=== PATIENT | male | born 1975 | race Caucasian/White ===

== ENCOUNTER 2020-08-05 20:16 | Emergency (ER) | payer OTHER ==
[~2020-08-05] VITALS: Ht 172.7 cm; Wt 215.9 kg
[2020-08-05] MEDS ORDERED: LASI20TA3 PO (20:24)
[2020-08-05] MEDS ORDERED: ZETI10TA16 PO (20:24)
[2020-08-05] MEDS ORDERED: DULO1CAP6 PO (20:24)
[2020-08-05] MEDS ORDERED: PROT20TA11 PO (20:24)
[2020-08-05] MEDS ORDERED: tumeric PO (20:24)
[2020-08-05] MEDS ORDERED: CELE100C PO (20:24)
[2020-08-05] MEDS ORDERED: NS 1,000 ML IV ONE (21:30)
[2020-08-05] MEDS ORDERED: KETOROLAC 30 MG/ML 1ML VIAL IV ONE (21:30)
[2020-08-05 21:59] LABS: BASO # 0.1 10^3/uL (0.0-0.2); BASO % 0.9 % (0.0-1.0); EOS # 0.2 10^3/uL (0.0-0.5); EOS % 2.3 % (0.0-3.0); HEMATOCRIT 52.7 % (42.0-52.0); HEMOGLOBIN 17.5 g/dl (13.5-17.5); LYMPH # 2.4 10^3/uL (1.5-5.0); MEAN CORPUSCULAR HEMOGLOBIN 30.8 pg (27.0-33.0); MEAN CORPUSCULAR HGB CONC 33.2 g/dl (32.0-36.5); MEAN CORPUSCULAR VOLUME 92.8 fl (80.0-96.0); MONO # 0.8 10^3/uL (0.0-0.8); MONO % 12.3 % (0.0-5.0); NEUTROPHILS # 3.2 10^3/uL (1.5-8.5); NEUTROPHILS % 48.2 % (36.0-66.0); PLATELET COUNT, AUTOMATED 257 10^3/uL (150-450); RED BLOOD COUNT 5.68 10^6/uL (4.30-6.10); WHITE BLOOD COUNT 6.5 10^3/uL (4.0-10.0)
[2020-08-05 22:28] LABS: ALBUMIN 3.8 GM/DL (3.2-5.2); ALT/SGPT 35 U/L (12-78); BILIRUBIN,DIRECT 0.3 MG/DL (0.0-0.2); BILIRUBIN,TOTAL 1.4 MG/DL (0.2-1.0); BLOOD UREA NITROGEN 9 MG/DL (7-18); CALCIUM LEVEL 9.8 MG/DL (8.5-10.1); CARBON DIOXIDE LEVEL 32 MEQ/L (21-32); CHLORIDE LEVEL 104 MEQ/L (98-107); GLOMERULAR FILTRATION RATE > 60.0 (>60); GLUCOSE, FASTING 86 MG/DL (70-100); LIPASE 78 U/L (73-393); SODIUM LEVEL 138 MEQ/L (136-145); TOTAL PROTEIN 8.2 GM/DL (6.4-8.2)
--- NOTE | 2020-08-05 22:29 | REPVR ---
PROCEDURE INFORMATION: Exam: CT Abdomen And Pelvis Without Contrast Exam date and time: 08/05/2020 9:56 PM Age: 45 years old Clinical indication: Abdominal pain; Localized; Left; Additional info: Left sided flank pain, hematuria TECHNIQUE: Imaging protocol: Computed tomography of the abdomen and pelvis without contrast. Radiation optimization: All CT scans at this facility use at least one of these dose optimization techniques: automated exposure control; mA and/or kV adjustment per patient size (includes targeted exams where dose is matched to clinical indication); or iterative reconstruction. COMPARISON: No relevant prior studies available. FINDINGS: Limitations: Evaluation is somewhat limited by lack of IV contrast. Lungs: The visualized lung bases are essentially clear. Liver: Grossly unremarkable. Gallbladder and bile ducts: Multiple stones are present in the gallbladder. Pancreas: The pancreas is somewhat atrophic. Spleen: Grossly unremarkable. Adrenals: Grossly unremarkable. Kidneys and ureters: Mild left-sided hydroureteronephrosis with a 5 x 3 x 2 mm mid to distal left ureteral stone, approximately 8 cm proximal to the ureterovesical junction, and with a 3 x 3 x 2 mm stone at the left ureterovesical junction. There are additional nonobstructing bilateral renal stones, measuring up to 7 mm on the right and 4 mm on the left. There is no right-sided hydronephrosis or ureteral stone. Stomach and bowel: The unopacified small bowel is not significantly distended to suggest obstruction. The large bowel is grossly unremarkable in appearance. Appendix: The appendix appears normal. Intraperitoneal space: No free air or significant free fluid. Vasculature: The abdominal aorta is nonaneurysmal. Atherosclerotic vascular calcifications are noted. Lymph nodes: No gross pathologic lymphadenopathy. Bladder: Grossly unremarkable. Reproductive: Unremarkable as visualized. Bones/joints: Degenerative changes involve the spine and hips. Soft tissues: Unremarkable. IMPRESSION: 1. Mild left-sided hydroureteronephrosis with a 5 x 3 x 2 mm mid to distal left ureteral stone, approximately 8 cm proximal to the ureterovesical junction, and with a 3 x 3 x 2 mm stone at the left ureterovesical junction. 2. Additional nonobstructing bilateral nephrolithiasis. 3. Cholelithiasis. Electronically signed by: Torin Ibarra On 08/05/2020 22:29:02 PM
[2020-08-06] MEDS ORDERED: ONDANSETRON 4MG/2ML VIAL IV ONE (00:15)
[2020-08-06] MEDS ORDERED: MORPHINE 4 MG/ML 1ML VIAL/SYRINGE (J2270) IV PRN (00:15)
[2020-08-06] MEDS ORDERED: PERC5TAB12 PO (01:09)
[2020-08-06] MEDS ORDERED: BACT800T5 PO (01:09)
[2020-08-06] MEDS ORDERED: FLOM0.4C39 PO (01:09)
[2020-08-06] MEDS ORDERED: TAMSULOSIN 0.4 MG CAP PO ONE (01:15)
[2020-08-06] MEDS ORDERED: OXYCODONE/APAP 5MG/325MG(BULK FOR ED) 1 TABLET PO ONE (01:15)
[2020-08-06 01:27] VITALS: BP 129/60
== END 2020-08-06 01:39 | disposition home or self-care (01) ==
LOC: M ED 20:16
DX: N13.1 Hydronephrosis with ureteral stricture, not elsewhere classified (principal); N13.0 Hydronephrosis with ureteropelvic junction obstruction; N20.0 Calculus of kidney; K80.20 Calculus of gallbladder without cholecystitis without obstruction; I50.9 Heart failure, unspecified; K21.9 Gastro-esophageal reflux disease without esophagitis; Z88.1 Allergy status to other antibiotic agents; Z79.899 Other long term (current) drug therapy
CPT/HCPCS: 74176; 80048; 80076; 81001; 83690; 85025; 87040; 87086; 96361; 96374; 96375; 99284; J1885; J2270; J2405

== ENCOUNTER 2021-01-12 06:27 | Emergency (ER) | payer OTHER ==
[~2021-01-12] VITALS: Ht 175.3 cm; Wt 234.5 kg
[~2021-01-12 06:27] MED LIST: BACT800T5 PO; CELE100C PO; DULO1CAP6 PO; FLOM0.4C39 PO; LASI20TA3 PO; PERC5TAB12 PO; PROT20TA11 PO; ZETI10TA16 PO; tumeric PO
[2021-01-12] MEDS ORDERED: NS 1,000 ML IV ONE (07:00)
[2021-01-12] MEDS ORDERED: MORPHINE 4 MG/ML 1ML VIAL/SYRINGE (J2270) IV ONE ×2 (07:00→08:15)
--- OUTSIDE RECORDS SUMMARY | 2021-01-12 07:02 | CCD ---
Author Author [facility] Organization [facility] Address Unknown Phone Unavailable Care Team Providers Care Retail Commission Sales Associate Name Role Phone Lala COCHRAN MD Unavailable Unavailable Lala COCHRAN MD Unavailable Unavailable Lala COCHRAN MD Unavailable Unavailable Lala COCHRAN MD Unavailable Unavailable Lala COCHRAN MD Unavailable Unavailable Lala COCHRAN MD Unavailable Unavailable Lala COCHRAN MD Unavailable Unavailable Lala COCHRAN MD Unavailable Unavailable Lala COCHRAN MD Unavailable Unavailable Lala COCHRAN MD Unavailable Unavailable Lala COCHRAN MD Unavailable Unavailable Lala COCHRAN MD Unavailable Unavailable Lala COCHRAN MD Unavailable Unavailable Lala COCHRAN MD Unavailable Unavailable Lala CCOHRAN MD Unavailable Unavailable Lala COCHRAN MD Unavailable Unavailable Lala COCHRAN MD Unavailable Unavailable Lala COCHRAN MD Unavailable Unavailable Lala COCHRAN MD Unavailable Unavailable Lala COCHRAN MD Unavailable Unavailable Lala COCHRAN MD Unavailable Unavailable Lala COCHRAN MD Unavailable Unavailable Lala COCHRAN MD Unavailable Unavailable Lala COCHRAN MD Unavailable Unavailable Lala COCHRAN MD Unavailable Unavailable Lala COCHRAN MD Unavailable Unavailable Lala COCHRAN MD Unavailable Unavailable Lala COCHRAN MD Unavailable Unavailable Lala COCHRAN MD Unavailable Unavailable Lala COCHRAN MD Unavailable Unavailable Lala COCHRAN MD Unavailable Unavailable Lala COCHRAN MD Unavailable Unavailable Lala COCHRAN MD Unavailable Unavailable Lala COCHRAN MD Unavailable Unavailable Lala COCHRAN MD Unavailable Unavailable Lala COCHRAN MD Unavailable Unavailable Lala COCHRAN MD Unavailable Unavailable Lala COCHRAN MD Unavailable Unavailable Lala COCHRAN MD Unavailable Unavailable Lala COCHRAN MD Unavailable Unavailable Lala COCHRAN MD Unavailable Unavailable Lala COCHRAN MD Unavailable Unavailable Lala COCHRAN MD Unavailable Unavailable Lala COCHRAN MD Unavailable Unavailable Lala COCHRAN MD Unavailable Unavailable DR MD EH TITUS Unavailable Unavailable MARYJO, RAMIRO PA Unavailable Unavailable MARYJO, RAMIRO PA Unavailable Unavailable MARYJO, RAMIRO PA Unavailable Unavailable MARYJO, RAMIRO PA Unavailable Unavailable MARYJO, RAMIRO PA Unavailable Unavailable MARYJO, RAMIRO PA Unavailable Unavailable MARYJO, RAMIRO PA Unavailable Unavailable MARYJO, RAMIRO PA Unavailable Unavailable MARYJO, RAMIRO PA Unavailable Unavailable MARYJO, RAMIRO PA Unavailable Unavailable MARYJO, RAMIRO PA Unavailable Unavailable MARYJO, RAMIRO PA Unavailable Unavailable MARYJO, RAMIRO PA Unavailable Unavailable MARYJO, RAMIRO PA Unavailable Unavailable Ángel, E Yash DO Unavailable Unavailable Ángel, E Yash DO Unavailable Unavailable Ángel, E Yash DO Unavailable Unavailable Ángel, E Yash DO Unavailable Unavailable Ángel, E Yash DO Unavailable Unavailable Ángel, E Yash DO Unavailable Unavailable Ángel, E Yash DO Unavailable Unavailable Ángel, E Yash DO Unavailable Unavailable Ángel, E Yash DO Unavailable Unavailable Ángel, E Yash DO Unavailable Unavailable Ángel, E Yash DO Unavailable Unavailable Ángel, E Yash DO Unavailable Unavailable Ángel, E Yash DO Unavailable Unavailable Ángel, E Yash DO Unavailable Unavailable Ángel, E Yash DO Unavailable Unavailable Ángel, E Yash DO Unavailable Unavailable Ángel, E Yash DO Unavailable Unavailable Ángel, E Yash DO Unavailable Unavailable Ángel, E Yash DO Unavailable Unavailable Ángel, E Yash DO Unavailable Unavailable Ángel, E Yash DO Unavailable Unavailable Ángel, E Yash DO Unavailable Unavailable Ángel, E Yash DO Unavailable Unavailable Ágnel, E Yash DO Unavailable Unavailable DR DOMINIC HOLLEY [facility] Unavailable Unavailable Re-disclosure Warning The records that you are about to access may contain information from federally-assisted alcohol or drug abuse programs. If such information is present, then the following federally mandated warning applies: This information has been disclosed to you from records protected by federal confidentiality rules (42 CFR part 2). The federal rules prohibit you from making any further disclosure of this information unless further disclosure is expressly permitted by the written consent of the person to whom it pertains or as otherwise permitted by 42 CFR part 2. A general authorization for the release of medical or other information is NOT sufficient for this purpose. The Federal rules restrict any use of the information to criminally investigate or prosecute any alcohol or drug abuse patient.The records that you are about to access may contain highly sensitive health information, the redisclosure of which is protected by Article 27-F of the [facility] Public Health law. If you continue you may have access to information: Regarding HIV / AIDS; Provided by facilities licensed or operated by the [facility] Office of Mental Health; or Provided by the [facility] Office for People With Developmental Disabilities. If such information is present, then the following [facility] mandated warning applies: This information has been disclosed to you from confidential records which are protected by state law. State law prohibits you from making any further disclosure of this information without the specific written consent of the person to whom it pertains, or as otherwise permitted by law. Any unauthorized further disclosure in violation of state law may result in a fine or fdc sentence or both. A general authorization for the release of medical or other information is NOT sufficient authorization for further disc losure. Allergies and Adverse Reactions Type Description Substance Reaction Status Data Source(s ) Miscellaneous allergy No Known Environmental Allergies No Kn own Environmental Allergies [facility] Food allergy CINNAMON CINNAMON [facility] ROCEPHIN ROCEPHIN Anaphylaxis MODERATE C [facility] Drug allergy LIPITOR LIPITOR ELEVATED LIVER ENZYMES MODERATE [facility] Family History Family Member Name Family Member Gender Family Member Status Date o f Status Description Data Source(s) Unknown Unknown Problem [facility] ([facility] Encounters Encounter Providers Location Date Indications Data Source(s ) Outpatient Attender: Yash albright: Yash Neal DOConsultant: DR NESSA HOLLEY 008 09/21/2020 12:42:00 PM EDT - 09/21/2020 12:42:00 PM EDT Lab test [facility] Lab test Outpatient Attender: Yash albright: Yash Hernandezerrer: Yash Neal DOConsultant: DR NESSA HOLLEY 09/21/2020 11:37:00 AM EDT - 09/21/2020 12:00:00 PM EDT Pain in back [facility] Pain in back Patient discharged. Outpatient Attender: DR EH Rosalesmitter: DR EH MONCADASReferrer: DR EH MONCADASConsultant: DR NESSA HOLLEY 08/11/2020 02:20:00 PM EDT - 08/11/2020 02:30:00 PM EDT Other follow-up examination [facility] Other follow-up examination Patient discharged. Outpatient Attender: RAMIRO RINCON dmitter: RAMIRO SIBLEY PAReferrer: RAMIRO SIBLEY PAConsultant: BELGICA COCHRAN MD 03/05/2020 02:30:00 PM EDT - 03/05/2020 02:50:00 PM EDT Pain in back [facility] Pain in back Patient discharged. Outpatient Attender: Yash Leal mitter: Yash Hernandezerrer: Yash Neal DOConsultant: BELGICA COCHRAN MD 01/30/2020 01:30:0 0 PM EST - 01/30/2020 02:20:00 PM EST Pain in back [facility] Pain in back Patient discharged. Outpatient Attender: Yash Leal mitter: Yash Hernandezerrer: Yash Neal DOConsultant: BELGICA COCHRAN MD 12/04/2019 02:47:0 0 PM EST - 12/04/2019 03:00:00 PM EST Pain in back [facility] Pain in back Patient discharged. Outpatient Attender: BELGICA COCHRAN MDAdmi tter: BELGICA COCHRAN MDReferrer: BELGICA COCHRAN MDConsultant: BELGICA COCHRAN MD 11/27/1999 04:06:00 PM EST [facility] Medications Medication Brand Name Start Date Product Form Dose Route Admi nistrative Instructions Pharmacy Instructions Status Indications Reaction Description Data Source(s) Diclofenac Sodium 20 MG/ML Topical Solut ion [Pennsaid] Pennsaid 2% Topical application Solution Pennsaid 2% Topical application Solution 02/13/2020 12:00:00 AM EDT 1 g TOPICAL active Pennsaid 2% Topical application Solution 02/13/2020 Unknown TOPICAL NEEDED EVERY 12HR 1 APPLICATION [id number] [facility] duloxetine 30 MG Delayed Release Oral Ca psule DULoxetine HCl 30MG Oral Capsule, Delayed Release DULoxetine HCl 30MG Oral Capsule, Delayed Release 03/2020 12:00:00 AM EST 1 CAPSULE BY MOUTH active DULoxetine HCl 30MG Oral Capsule, Delayed Release 01/30/2020 Unknown BY MOUTH DAILY 1 CAPSULE 5969 30 [facility] duloxetine 30 MG Delayed Release Oral Ca psule DULoxetine HCl 30MG Oral Capsule, Delayed Release DULoxetine HCl 30MG Oral Capsule, Delayed Release 03/2020 12:00:00 AM EST 1 CAPSULE BY MOUTH active DULoxetine HCl 30MG Oral Capsule, Delayed Release 01/30/2020 Unknown BY MOUTH DAILY 1 CAPSULE 5969 30 [facility] Diclofenac Sodium 0.03 MG/MG Topical Gel Diclofenac Sodium 3% Topical application Gel/Jelly Diclofenac Sodium 3% Topical application Gel/Jelly 01/30/2020 12:00:00 AM EST 1 g TOPICAL active Diclofenac Sodium 3% Topical application Gel/Jelly 01/30/2020 Unknown TOPICAL NEEDED E VERY 12HR 1 APPLICATION [id number] [facility] Diclofenac Sodium 0.03 MG/MG Topical Gel Diclofenac Sodium 3% Topical application Gel/Jelly Diclofenac Sodium 3% Topical application Gel/Jelly 01/30/2020 12:00:00 AM EST 1 g TOPICAL active Diclofenac Sodium 3% Topical application Gel/Jelly 01/30/2020 Unknown TOPICAL NEEDED E VERY 12HR 1 APPLICATION [id number] [facility] Diclofenac Sodium 0.01 MG/MG Topical Gel [Voltaren] Voltaren Gel 1% Topical application Gel/Jelly Voltaren Gel 1% Topical application Gel/Jelly 12/04/19 12:00:00 AM EST 4 GRAM TOPICAL active Voltaren Gel 1% Topical application Gel/Jelly 12/04/2019 Unknown TOPICAL THREE TIMES A DAY 4 GRAM [id number] [facility] ezetimibe 10 MG Oral Tablet [Zetia] Zetia 10MG Oral Ta blet Zetia 10MG Oral Tablet 12/04/2019 12:00:00 AM EST 1 TABLET BY MOUTH active Zetia 10MG Oral Tablet 12/04/2019 Unknown BY MOUTH DAILY 1 TABLET [id number] [facility] Nitroglycerin 0.4 MG Sublingual Tablet [ Nitrostat] Nitrostat 0.4MG Sublingual Tablet Nitrostat 0.4MG Sublingual Tablet 12/04/2019 12:00:00 AM EST 0.4 MILLIGRAMS SUBLINGUAL active Nitrostat 0.4MG [place] blingual Tablet 12/04/2019 Unknown SUBLINGUAL 1 SL EVERY 5 MIN X3 PRN 0.4 MILLIGRAMS [id number] [facility] Medrol Dosepak 4MG Oral Tablet 12/04/2019 12:00:00 AM EST 1 TABLET BY MOUTH active Medrol Dosepak 4MG Oral Tablet 0 Unknown BY MOUTH DIRECTED 1 TABLET [id number] [facility] Nitroglycerin 0.4 MG Sublingual Tablet [ Nitrostat] Nitrostat 0.4MG Sublingual Tablet Nitrostat 0.4MG Sublingual Tablet 12/04/2019 12:00:00 AM EST 0.4 MILLIGRAMS SUBLINGUAL active Nitrostat 0.4MG [place] blingual Tablet 12/04/2019 Unknown SUBLINGUAL 1 SL EVERY 5 MIN X3 PRN 0.4 MILLIGRAMS 368323 [facility] pantoprazole 20 MG Delayed Release Oral Tablet [Protonix] Protonix 20MG Oral Tablet, Enteric Coated Protonix 20MG Oral Tablet, Enteric Coated 12/04/2019 12:00:00 AM EST 1 TABLET BY MOUTH active Protonix 20MG Oral Tablet, Enteric Coated 12/04/2019 Unknown BY MOUTH DAILY 1 TABLET [id number] [facility] 24 HR metoprolol succinate 25 MG Extende d Release Oral Tablet Metoprolol Succinate 25MG Oral Tablet, Extended Release Metoprolol Succinate 25MG Oral Tablet, Extended Release 12/04/2019 12:00:00 AM EST 25 MILLIGRAMS ORAL active Metoprolol Succinate 25MG Oral Tablet, Ex tended Release 12/04/2019 Unknown ORAL TWICE A DAY 25 MILLIGRAMS [id number] [facility] Medrol Dosepak 4MG Oral Tablet 12/04/2019 12:00:00 AM EST 1 TABLET BY MOUTH active Medrol Dosepak 4MG Oral Tablet 0 Unknown BY MOUTH DIRECTED 1 TABLET [id number] [facility] celecoxib 100 MG Oral Capsule [Celebrex] CeleBREX 100M G Oral Capsule CeleBREX 100MG Oral Capsule 12/04/2019 12:00:00 AM EST 1 CAPSULE BY MOUTH active CeleBREX 100MG Oral Capsule 12/04/2019 Unknown BY MOUTH NEEDE D EVERY 12HR 1 CAPSULE 187695 [facility] Nitroglycerin 0.4 MG Sublingual Tablet [ Nitrostat] Nitrostat 0.4MG Sublingual Tablet Nitrostat 0.4MG Sublingual Tablet 12/04/2019 12:00:00 AM EST 0.4 MILLIGRAMS SUBLINGUAL active Nitrostat 0.4MG [place] blingual Tablet 12/04/2019 Unknown SUBLINGUAL 1 SL EVERY 5 MIN X3 PRN 0.4 MILLIGRAMS [id number] [facility] Diclofenac Sodium 0.01 MG/MG Topical Gel [Voltaren] Voltaren Gel 1% Topical application Gel/Jelly Voltaren Gel 1% Topical application Gel/Jelly 12/04/19 20 12:00:00 AM EST 4 GRAM TOPICAL active Voltaren Gel 1% Topical application Gel/Jelly 12/04/2019 Unknown TOPICAL THREE TIMES A DAY 4 GRAM [id number] [facility] Diclofenac Sodium 0.01 MG/MG Topical Gel [Voltaren] Voltaren Gel 1% Topical application Gel/Jelly Voltaren Gel 1% Topical application Gel/Jelly 12/04/19 12:00:00 AM EST 4 GRAM TOPICAL active Voltaren Gel 1% Topical application Gel/Jelly 12/04/2019 Unknown TOPICAL THREE TIMES A DAY 4 GRAM 204779 [facility] pantoprazole 20 MG Delayed Release Oral Tablet [Protonix] Protonix 20MG Oral Tablet, Enteric Coated Protonix 20MG Oral Tablet, Enteric Coated 12/04/2019 12:00:00 AM EST 1 TABLET BY MOUTH active Protonix 20MG Oral Tablet, Enteric Coated 12/04/2019 Unknown BY MOUTH DAILY 1 TABLET [id number] [facility] Furosemide 20 MG Oral Tablet [Lasix] Lasix 20MG Oral T ablet Lasix 20MG Oral Tablet 12/04/2019 12:00:00 AM EST 1 TABLET BY MOUTH active Lasix 20MG Oral Tablet 12/04/2019 Unknown BY MOUTH TWICE A DAY 1 TABLET [facility] ezetimibe 10 MG Oral Tablet [Zetia] Zetia 10MG Oral Ta blet Zetia 10MG Oral Tablet 12/04/2019 12:00:00 AM EST 1 TABLET BY MOUTH active Zetia 10MG Oral Tablet 12/04/2019 Unknown BY MOUTH DAILY 1 TABLET 279266 [facility] 24 HR metoprolol succinate 25 MG Extende d Release Oral Tablet Metoprolol Succinate 25MG Oral Tablet, Extended Release Metoprolol Succinate 25MG Oral Tablet, Extended Release 12/04/2019 12:00:00 AM EST 25 MILLIGRAMS ORAL active Metoprolol Succinate 25MG Oral Tablet, Ex tended Release 12/04/2019 Unknown ORAL TWICE A DAY 25 MILLIGRAMS [id number] [facility] celecoxib 100 MG Oral Capsule [Celebrex] CeleBREX 100M G Oral Capsule CeleBREX 100MG Oral Capsule 12/04/2019 12:00:00 AM EST 1 CAPSULE BY MOUTH active CeleBREX 100MG Oral Capsule 12/04/2019 Unknown BY MOUTH NEEDE D EVERY 12HR 1 CAPSULE [id number] [facility] Furosemide 20 MG Oral Tablet [Lasix] Lasix 20MG Oral T ablet Lasix 20MG Oral Tablet 12/04/2019 12:00:00 AM EST 1 TABLET BY MOUTH active Lasix 20MG Oral Tablet 12/04/2019 Unknown BY MOUTH TWICE A DAY 1 TABLET [facility] pantoprazole 20 MG Delayed Release Oral Tablet [Protonix] Protonix 20MG Oral Tablet, Enteric Coated Protonix 20MG Oral Tablet, Enteric Coated 12/04/2019 12:00:00 AM EST 1 TABLET BY MOUTH active Protonix 20MG Oral Tablet, Enteric Coated 12/04/2019 Unknown BY MOUTH DAILY 1 TABLET [id number] [facility] ezetimibe 10 MG Oral Tablet [Zetia] Zetia 10MG Oral Ta blet Zetia 10MG Oral Tablet 12/04/2019 12:00:00 AM EST 1 TABLET BY MOUTH active Zetia 10MG Oral Tablet 12/04/2019 Unknown BY MOUTH DAILY 1 TABLET 416505 [facility] 24 HR metoprolol succinate 25 MG Extende d Release Oral Tablet Metoprolol Succinate 25MG Oral Tablet, Extended Release Metoprolol Succinate 25MG Oral Tablet, Extended Release 12/04/2019 12:00:00 AM EST 25 MILLIGRAMS ORAL active Metoprolol Succinate 25MG Oral Tablet, Ex tended Release 12/04/2019 Unknown ORAL TWICE A DAY 25 MILLIGRAMS [id number] [facility] MG Oral Capsule [Celebrex] CeleBREX 100M G Oral Capsule CeleBREX 100MG Oral Capsule 12/04/2019 12:00:00 AM EST 1 CAPSULE BY MOUTH active CeleBREX 100MG Oral Capsule 12/04/2019 Unknown BY MOUTH NEEDE D EVERY 12HR 1 CAPSULE 511176 [facility] 20 MG Oral Tablet [Lasix] Lasix 20MG Oral T ablet Lasix 20MG Oral Tablet 12/04/2019 12:00:00 AM EST 1 TABLET BY MOUTH active Lasix 20MG Oral Tablet 12/04/2019 Unknown BY MOUTH TWICE A DAY [facility] 4MG Oral Tablet 12/04/2019 12:00:00 AM EST 1 TABLET BY MOUTH active Medrol Dosepak 4MG Oral Tablet 0 Unknown BY MOUTH DIRECTED 1 TABLET [id number] [facility] Insurance Providers Payer name Policy type / Coverage type Policy ID Covered republican ID Covered republican's relationship to starr Policy Starr Plan Information [employer]Z [id number] [employer] MANAGED CARE - CLINIC [id number] undefined [id number] [employer] MANAGED CARE - OP [id number] efined [id number] [place] [id number] S [id number] [employer]Z-PHYSICIAN [id number] undefined DF [id number] [employer]Z [id number] undefined [id number] [employer] I [id number] Self [id number] [employer] MEDICIAD MANAGED CARE-RECURRING [id number] MEDICAID [facility]-OP [id number] [place] - Medicaid [employer] Maintenance [employer] (HMO) Self [employer] MEDICAID [id number] Kerri [id number] MEDICAID [id number] S [id number] [facility] [id number] Problems, Conditions, and Diagnoses Code Display Name Description Problem Type Effective Dates Data Source(s) E6601 Morbid (severe) obesity due to excess ca lories Morbid (severe) obesity due to excess calories Diagnosis 09/21/2020 12:42:00 PM EDT [facility] E785 Hyperlipidemia, unspecified Hyperlipidemia, unspecifie d Diagnosis 09/21/2020 12:42:00 PM EDT [facility] E119 Type 2 diabetes mellitus without complic ations Type 2 diabetes mellitus without complications Diagnosis 09/21/2020 12:42:00 PM EDT [facility] M545 Low back pain Low back pain Diagnosis 09/21/2020 11:37:00 AM EDT [facility] F4312 Post-traumatic stress disorder, chronic Post-traumatic stress disorder, chronic Diagnosis 09/21/2020 11:37:00 AM EDT [facility] F341 Dysthymic disorder Dysthymic disorder Diagnosis 0 11:37:00 AM EDT [facility] R609 Edema, unspecified Edema, unspecified Diagnosis 0 11:37:00 AM T [facility] Z6845 Body mass index [BMI] 70 or greater, abigail lt Body mass index [BMI] 70 or greater, adult Diagnosis 09/21/2020 11:37:00 AM T [facility] N200 Calculus of kidney Calculus of kidney Diagnosis 0 11:37:00 AM EDT [facility] R1030 Lower abdominal pain, unspecified Lower abdomina l pain, unspecified Diagnosis 09/21/2020 11:37:00 AM EDT [facility] N132 N132 Diagnosis 08/11/2020 02:20:00 PM ED T [facility] R1032 Left lower quadrant pain Left lower quadrant pain Diag nosis 08/11/2020 02:20:00 PM EDT [facility] N132 Hydronephrosis with renal and ureteral c alculous obstruction Hydronephrosis with renal and ureteral calculous obstruction Diagnosis 020 02:20:00 PM EDT [facility] Z6844 Body mass index (BMI) 60.0-69.9, adult B mohit mass index (BMI) 60.0-69.9, adult Diagnosis 03/05/2020 02:30:00 PM EDT [facility] [id number] Pain in left knee Pain in left knee Diagnosis 03/05/2020 02:30:00 PM EDT [facility] M4646 Discitis, unspecified, lumbar region Discitis, u nspecified, lumbar region Diagnosis 01/30/2020 01:30:00 PM EST [facility] M1990 Unspecified osteoarthritis, unspecified site Unspecified osteoarthritis, unspecified site Diagnosis 12/04/2019 02:47:00 PM EST [facility] E804 Gilbert syndrome Gilbert syndrome Diagnosis 12/04/2019 02 :47:00 PM EST [facility] I10 Essential (primary) hypertension Essential (primary) h ypertension Diagnosis 12/04/2019 02:47:00 PM EST [facility] I252 Old myocardial infarction Old myocardial infarction Di agnosis 12/04/2019 02:47:00 PM EST [facility] I2510 Atherosclerotic heart diseas e of [place] coronary artery without angina pectoris Atherosclerotic heart disease of [place] coronary artery without angina pectoris Diagnosis 12/04/2019 02:47:00 PM [facility] Results ID Date Data Source [id number] 09/21/2020 12:50:00 PM EDT [facility] Name Value Range Interpretation Code Description Data Purvi rce(s) Supporting Document(s) Hemoglobin A1c/Hemoglobin.total in Blood 5.8 % 4.0 - 5.6 Above high normal [facility] Glucose mean value [Mass/volume] in Blood Estimated fr om glycated hemoglobin 120 mg/dL [facility] \BLDo\HEMOGLO BIN A1C\BLDx\ 4.0 - 5.6%: Normal 5.7 - 6.4%: Suggests Impaired Glucose Metabolism > or = 6.5%: Abnormal Estimated average glucose calculated using ADAG Study formula as recommended by the [place] [employer]. ID Date Data Source [id number] 09/21/2020 12:50:00 PM EDT [facility] Name Value Range Interpretation Code Description Data Purvi rce(s) Supporting Document(s) Cholesterol [Mass/volume] in Serum or Plasma 237 mg/dL [facility] Triglyceride [Mass/volume] in Serum or Plasma 100 mg/dL [facility] Cholesterol in HDL [Mass/volume] in Serum or Plasma 45 mg/dL [facility] Cholesterol in LDL [Mass/volume] in Serum or Plasma by calculati on 172 mg/dL [facility] CHOL/HDL 5.27 [facility] l \BLDo\INTERPRE TATION\BLDx\ REFERENCE RANGES (NATIONAL CHOLESTEROL EDUCATION PROGRAM) CHOLESTEROL < 200 mg/dL DESIREABLE 200 - 239 mg/dL BORDERLINE HIGH > 240 mg/dL HIGH TRIGLYCERIDES < 150 mg/dL DESIREABLE 150 - 199 mg/dL BORDERLINE HIGH 200 - 499 mg/dL HIGH > or = 500 mg/dL VERY HIGH HDL > or = 60 mg/dL HIGH < 40 mg/dL LOW LDL < 100 mg/dL DESIREABLE 100 - 129 mg/dL LOW RISK 130 - 159 mg/dL BORDERLINE HIGH 160 - 189 mg/dL HIGH > or = 190 mg/dL VERY HIGH ID Date Data Source [id number] 09/21/2020 12:50:00 PM EDT [facility] Name Value Range Interpretation Code Description Data Purvi rce(s) Supporting Document(s) BASIC METABOLIC PANEL [facility] BASIC METABOLIC PANEL Sodium [Moles/volume] in Serum or Plasma 138 mEq/L 136 - 145 [facility] Potassium [Moles/volume] in Serum or Plasma 4.0 mEq/L 3.5 - 5.1 [facility] Chloride [Moles/volume] in Serum or Plasma 102 mEq/L 98 - 107 [facility] Carbon dioxide, total [Moles/volume] in Serum or Plasma 27.1 mEq /L 21.0 - 32.0 [facility] Glucose [Mass/volume] in Serum or Plasma 97 mg/dL 70 - 100 [facility] Urea nitrogen [Mass/volume] in Serum or Plasma 12 mg/dL 7 - 18 [facility] CREATININE SERUM 0.98 mg/dL 0.70 - 1.30 [facility] AGE 45 yrs [facility] eGFR NON-AFR AMR >60 [facility] eGFR AFR AMR >60 [facility] ital BUN/CREAT 12 6 - 25 [facility] Calcium [Mass/volume] in Serum or Plasma 9.5 mg/dL 8.8 - 10.2 [facility] ANION GAP 9 7 - 15 [facility] l Estimated GFR reference r yasir: > 60 mL/min/1.73m >18 years: Calculated using IDMS traceable MDRD Study Equation <18 years: Calculated using IDMS traceable Bedside Paul Equation Procedure Vital Signs ID Date Data Source UNK Name Value Range Interpretation Code Description Data Source(s) Body weight 215.46 kg 215.46 kg [facility] Body temperature 36.6 Celia 36.6 Celia [facility] Respiratory rate 20 /min 20 /min [facility] Heart rate 97.0 /min 97.0 /min [facility] ospital Oxygen saturation in Arterial blood by Pulse oximetry 97 % 97 % [facility] Body height 175.2600 cm 175.2600 cm [facility] Body surface area Derived from formula 3.24 m2 3.24 m2 [facility] Diastolic blood pressure 84 mm[Hg] 84 mm[Hg] [facility] Systolic blood pressure 139 mm[Hg] 139 mm[Hg] [facility] Body mass index (BMI) [Ratio] 70.14 kg/m2 70.14 kg/m2 [facility] Body weight 212.73 kg 212.73 kg [facility] Body temperature 37.3 Celia 37.3 Celia [facility] Respiratory rate 20 /min 20 /min [facility] Heart rate 106.0 /min 106.0 /min [facility] ospital Oxygen saturation in Arterial blood by Pulse oximetry 96 % 96 % [facility] Body height 175.2600 cm 175.2600 cm [facility] Body surface area Derived from formula 3.22 m2 3.22 m2 [facility] Diastolic blood pressure 94 mm[Hg] 94 mm[Hg] [facility] Systolic blood pressure 154 mm[Hg] 154 mm[Hg] C [facility] Body mass index (BMI) [Ratio] 69.26 kg/m2 69.26 kg/m2 [facility] Patient Treatment Plan of Care Planned Activity Planned Date Details Description Data Source (s) Diclofenac Sodium 20 MG/ML Topical Solution [Pennsaid] 02/13/2020 12:00:00 AM EDT [facility] Diclofenac Sodium 0.03 MG/MG Topical Gel 01/30/2020 12:00:00 AM [facility] duloxetine 30 MG Delayed Release Oral Capsule 01/30/2020 12:00:00 A M [facility] Diclofenac Sodium 0.03 MG/MG Topical Gel 01/30/2020 12:00:00 AM [facility] duloxetine 30 MG Delayed Release Oral Capsule 01/30/2020 12:00:00 A M [facility] Nitroglycerin 0.4 MG Sublingual Tablet [Nitrostat] 12/04/2019 12 :00:00 AM [facility] Medrol Dosepak 4MG Oral Tablet 12/04/2019 12:00:00 AM [facility] Furosemide 20 MG Oral Tablet [Lasix] 12/04/2019 12:00:00 AM [facility] ezetimibe 10 MG Oral Tablet [Zetia] 12/04/2019 12:00:00 AM [facility] Diclofenac Sodium 0.01 MG/MG Topical Gel [Voltaren] 12/04/19 12:00:00 AM [facility] pantoprazole 20 MG Delayed Release Oral Tablet [Proton ix] 12/04/2019 12:00:[address] [facility] 24 HR metoprolol succinate 25 MG Extended Release Oral Tablet 12/04/2019 12:00:[address] [facility] celecoxib 100 MG Oral Capsule [Celebrex] 12/04/2019 12:00:00 AM [facility] 24 HR metoprolol succinate 25 MG Extended Release Oral Tablet 12/04/2019 12:00:[address] [facility] celecoxib 100 MG Oral Capsule [Celebrex] 12/04/2019 12:00:00 AM [facility] Nitroglycerin 0.4 MG Sublingual Tablet [Nitrostat] 12/04/2019 12 :00:00 AM [facility] Medrol Dosepak 4MG Oral Tablet 12/04/2019 12:00:00 AM [facility] Furosemide 20 MG Oral Tablet [Lasix] 12/04/2019 12:00:00 AM [facility] ezetimibe 10 MG Oral Tablet [Zetia] 12/04/2019 12:00:00 AM [facility] Diclofenac Sodium 0.01 MG/MG Topical Gel [Voltaren] 12/04/19 12:00:00 AM [facility] pantoprazole 20 MG Delayed Release Oral Tablet [Proton ix] 12/04/2019 12:00:[address] [facility] celecoxib 100 MG Oral Capsule [Celebrex] 12/04/2019 12:00:00 AM [facility] 24 HR metoprolol succinate 25 MG Extended Release Oral Tablet 12/04/2019 12:00:[address] [facility] pantoprazole 20 MG Delayed Release Oral Tablet [Proton ix] 12/04/2019 12:00:[address] [facility] Medrol Dosepak 4MG Oral Tablet 12/04/2019 12:00:00 AM [facility] Furosemide 20 MG Oral Tablet [Lasix] 12/04/2019 12:00:00 AM [facility] Nitroglycerin 0.4 MG Sublingual Tablet [Nitrostat] 12/04/2019 12 :00:00 AM [facility] ezetimibe 10 MG Oral Tablet [Zetia] 12/04/2019 12:00:00 AM [facility] Diclofenac Sodium 0.01 MG/MG Topical Gel [Voltaren] 12/04/19 12:00:00 AM [facility]
[2021-01-12] MEDS ORDERED: PANTOPRAZOLE 40MG VIAL (C9113 PER 1) IV ONE (07:15)
[2021-01-12 07:27] LABS: INR 0.94; PROTHROMBIN TIME 12.8 SECONDS (12.5-14.3)
[2021-01-12 07:28] LABS: PARTIAL THROMBOPLASTIN TIME 31.5 SECONDS (24.2-38.5)
[2021-01-12 07:38] LABS: ALBUMIN 3.1 GM/DL (3.2-5.2); ALT/SGPT 32 U/L (12-78); AMYLASE 35 U/L (25-115); BILIRUBIN,DIRECT 0.3 MG/DL (0.0-0.2); BILIRUBIN,TOTAL 1.2 MG/DL (0.2-1.0); BLOOD UREA NITROGEN 15 MG/DL (7-18); CALCIUM LEVEL 8.9 MG/DL (8.5-10.1); CARBON DIOXIDE LEVEL 33 MEQ/L (21-32); CHLORIDE LEVEL 103 MEQ/L (98-107); CK-MB VALUE MASS < 1.0 NG/ML (<3.6); CPK CREATINE PHOSPHOKINASE 72 U/L (39-308); CREATININE FOR GFR 1.04 MG/DL (0.70-1.30); GLOMERULAR FILTRATION RATE > 60.0 (>60); GLUCOSE, FASTING 162 MG/DL (70-100); LIPASE 111 U/L (73-393); MB/CK RELATIVE INDEX 1.39 (< OR =4); NT-PRO BNP 40 PG/ML (<125); POTASSIUM SERUM 4.5 MEQ/L (3.5-5.1); SODIUM LEVEL 141 MEQ/L (136-145); TOTAL PROTEIN 7.4 GM/DL (6.4-8.2); TROPONIN I < 0.02 NG/ML (< 0.10)
[2021-01-12 07:49] LABS: BASO # 0.1 10^3/uL (0.0-0.2); BASO % 0.7 % (0.0-1.0); EOS # 0.1 10^3/uL (0.0-0.5); EOS % 1.1 % (0.0-3.0); HEMATOCRIT 51.7 % (42.0-52.0); HEMOGLOBIN 16.2 g/dl (13.5-17.5); LYMPH # 0.9 10^3/uL (1.5-5.0); LYMPH % 12.5 % (24.0-44.0); MEAN CORPUSCULAR HEMOGLOBIN 28.8 pg (27.0-33.0); MEAN CORPUSCULAR HGB CONC 31.3 g/dl (32.0-36.5); MONO # 0.7 10^3/uL (0.0-0.8); MONO % 9.4 % (2.0-8.0); NEUTROPHILS # 5.4 10^3/uL (1.5-8.5); NEUTROPHILS % 75.9 % (36.0-66.0); PLATELET COUNT, AUTOMATED 232 10^3/uL (150-450); RED BLOOD COUNT 5.62 10^6/uL (4.30-6.10); WHITE BLOOD COUNT 7.1 10^3/uL (4.0-10.0)
[2021-01-12] MEDS ORDERED: ISOVUE-370 76% 100ML VIAL As Ordered ONE (07:51)
--- NOTE | 2021-01-12 07:55 | REP ---
INDICATION: Abdominal Pain. COMPARISON: Comparison study 08/05/2020.. TECHNIQUE: Six views are obtained including upright chest and abdomen views and supine abdomen views. FINDINGS: Upright chest radiograph is unremarkable. There is no evidence of infiltrate or free subdiaphragmatic air. Heart size is normal. Pulmonary vasculature is not increased. Pleural angles are sharp. Supine and erect views of the abdomen demonstrate a normal bowel gas pattern. The psoas margins and the flank stripes are intact. There is no evidence of mass, organomegaly, or pathologic calcification. IMPRESSION: Negative acute abdominal series. <Electronically signed by Víctor Montoya > 01/12/21 0750
--- NOTE | 2021-01-12 07:58 | ECGEPIP ---
[facility] - ED Test Date: 2021-01-12 Pat Name: ANNABELLE MCMAHON Department: Room: - Gender: Male [employer]: : 1975 Requested By: MARSHA Hackett PA-C Order Number: [id number] Reading MD: Kanu Foreman Measurements Intervals [place] Rate: 103 P: 33 FL: 154 QRS: 71 QRSD: 90 T: 38 QT: 344 QTc: 450 Interpretive Statements Sinus tachycardia NO PRIORS FOR COMPARISON Electronically Signed on 01-12-2021 7:58:22 EST by Kanu Foreman
[2021-01-12 08:15] LABS: MAGNESIUM LEVEL 2.2 MG/DL (1.8-2.4)
--- NOTE | 2021-01-12 08:32 | REP ---
INDICATION: epigastric abd pain COMPARISON: None. TECHNIQUE: Axial contrast enhanced images from the thoracic inlet to the upper abdomen using pulmonary embolus technique with multiplanar re-formations. 100 ml Isovue 370 intravenous contrast material administered without complication. Examination was followed by CT of the abdomen and pelvis. This CT examination was performed using the following dose reduction techniques: Automated exposure control, adjustment of mA and/or kv according to the patient's size, and use of iterative reconstruction technique. FINDINGS: Satisfactory enhancement of the pulmonary vasculature is achieved and no filling defects are identified to suggest pulmonary embolus. Further evaluation of the mediastinum demonstrates normal thoracic aorta, heart and pericardium. The bilateral lung ordonez are well aerated and clear without consolidation pleural effusion or pneumothorax. Tracheobronchial tree is patent. No nodule or mass lesion is identified. No adenopathy noted. Surrounding musculoskeletal structures intact IMPRESSION: No evidence for pulmonary embolus. Normal thoracic aorta without aneurysm or dissection. No acute mediastinal or pleural parenchymal process. <Electronically signed by Jorge Amin > 01/12/21 0874
--- NOTE | 2021-01-12 08:37 | REP ---
INDICATION: epigastric abd pain. COMPARISON: None TECHNIQUE: Axial contrast-enhanced images from the lung bases to the pubic symphysis using 100 cc Isovue 370 intravenous contrast material. . This CT examination was performed using the following dose reduction techniques: Automated exposure control, adjustment of mA and/or kv according to the patient's size, and the use of iterative reconstruction technique. FINDINGS: Liver, spleen and, bilateral adrenal glands are normal. Cholelithiasis noted without evidence for acute cholecystitis. Kidneys demonstrate nonobstructing intrarenal calculi measuring up to 5 mm in the right kidney and 3 mm in the left kidney. There is subtle bulbous appearance to the pancreatic tail which may be normal however subtle lesion cannot be excluded. The enteric system including stomach, small, and large bowel appears normal. No evidence for obstruction or acute inflammatory process. Normal terminal ileum and appendix are identified in the right lower quadrant. Pelvis demonstrates normal bladder and age-appropriate prostate/seminal vesicles. No ascites. No free air. No intraperitoneal or retroperitoneal adenopathy. Abdominal aorta and vasculature appear normal. Musculoskeletal structures are intact and without acute osseous abnormality. IMPRESSION: No acute abdominopelvic pathology appreciated. Bilateral nephrolithiasis. Cholelithiasis. Stable appearance of the pancreatic tail. Consider nonacute outpatient MRI with contrast to exclude possible lesion. <Electronically signed by Jorge Amin > 01/12/21 [id number]
--- NOTE | 2021-01-12 08:39 | REP ---
INDICATION: RUQ/epigastric pain, h/o gallstones COMPARISON: None. TECHNIQUE: Real time charles scale ultrasound examination using curved array transducer. FINDINGS: Visualized portions of the liver and pancreas are normal in appearance although limited by interposed bowel gas. The gallbladder demonstrates multiple gallstones without significant wall thickening, pericholecystic fluid, or obvious biliary ductal dilatation. Right kidney measures 11.4 x 5.6 x 6.0 cm and includes 13 mm upper pole and 8 mm lower pole nonobstructing nephroliths. No ascites in the visualized right upper quadrant. IMPRESSION: 1. Cholelithiasis without sonographic evidence for acute cholecystitis. 2. Nephrolithiasis without hydronephrosis. <Electronically signed by Jorge Amin > 01/12/21 [id number]
--- OUTSIDE RECORDS SUMMARY | 2021-01-12 09:15 | CCD ---
Author Author [facility] Organization [facility] Address Unknown Phone Unavailable Care Team Providers Care Process Engineer Name Role Phone Lala COCHRAN MD Unavailable Unavailable Lala COCHRAN MD Unavailable Unavailable Lala COCHRAN MD Unavailable Unavailable Lala COHCRAN MD Unavailable Unavailable Lala COCHRAN MD Unavailable [...] Unavailable Lala COCHRAN MD Unavailable Unavailable Lala COCRHAN MD Unavailable Unavailable Lala COCHRAN MD Unavailable [...] Unavailable Ángel, E Yash DO Unavailable Unavailable DR DOMINIC HOLLEY [facility] Unavailable Unavailable Re-disclosure Warning The records that [...] is protected by Article 27-F of the [facility] Public Health law. If you continue you may have access to information: Regarding HIV / AIDS; Provided by facilities licensed or operated by the [facility] Office of Mental Health; or Provided by the [facility] Office for People With Developmental Disabilities. If such information is present, then the following [facility] mandated warning applies: This information has been [...] law may result in a fine or usp sentence or both. A general authorization for the release of medical or other information is NOT sufficient authorization for further disc losure. Allergies and Adverse Reactions Type Description Substance Reaction Status Data Source(s ) Miscellaneous allergy No Known Environmental Allergies No Kn own Environmental Allergies [facility] Food allergy CINNAMON CINNAMON [facility] ROCEPHIN ROCEPHIN Anaphylaxis MODERATE C [facility] Drug allergy LIPITOR LIPITOR ELEVATED LIVER ENZYMES MODERATE [facility] Family History Family Member Name Family Member Gender Family Member Status Date o f Status Description Data Source(s) Unknown Unknown Problem [facility] ([facility] Encounters Encounter Providers Location Date Indications Data Source(s ) Outpatient Attender: Yash albright: Yash Neal DOConsultant: DR NESSA HOLLEY 008 09/21/2020 12:42:00 PM EDT - 09/21/2020 12:42:00 PM EDT Lab test [facility] Lab test Outpatient Attender: Yash albright: Yash Hernandezerrer: Yash Neal DOConsultant: DR NESSA HOLLEY 09/21/2020 11:37:00 AM EDT - 09/21/2020 12:00:00 PM EDT Pain in back [facility] Pain in back Patient discharged. Outpatient Attender: DR EH Rosalesmitter: DR EH MONCADASReferrer: DR EH MONCADASConsultant: DR NESSA HOLLEY 08/11/2020 02:20:00 PM EDT - 08/11/2020 02:30:00 PM EDT Other follow-up examination [facility] Other follow-up examination Patient discharged. Outpatient Attender: RAMIRO RINCON dmitter: RAMIRO SIBLEY PAReferrer: RAMIRO SIBLEY PAConsultant: BELGICA COCHRAN MD 03/05/2020 02:30:00 PM EDT - 03/05/2020 02:50:00 PM EDT Pain in back [facility] Pain in back Patient discharged. Outpatient Attender: Yash Leal mitter: Yash Hernandezerrer: Yash Neal DOConsultant: BELGICA COCHRAN MD 01/30/2020 01:30:0 0 PM EST - 01/30/2020 02:20:00 PM EST Pain in back [facility] Pain in back Patient discharged. Outpatient Attender: Yash Leal mitter: Yash Hernandezerrer: Yash Neal DOConsultant: BELGICA COCHRAN MD 12/04/2019 02:47:0 0 PM EST - 12/04/2019 03:00:00 PM EST Pain in back [facility] Pain in back Patient discharged. Outpatient Attender: BELGICA COCHRAN MDAdmi tter: BELGICA COCHRAN MDReferrer: BELGCIA COCHRAN MDConsultant: BELGICA COCHRAN MD 11/27/1999 04:06:00 PM EST [facility] Medications Medication Brand Name Start Date Product Form Dose Route Admi nistrative Instructions Pharmacy Instructions Status Indications Reaction Description Data Source(s) Diclofenac Sodium 20 MG/ML Topical Solut ion [Pennsaid] Pennsaid 2% Topical application Solution Pennsaid 2% Topical application Solution 02/13/2020 12:00:00 AM EDT 1 g TOPICAL active Pennsaid 2% Topical application Solution 02/13/2020 Unknown TOPICAL NEEDED EVERY 12HR 1 APPLICATION [id number] [facility] duloxetine 30 MG Delayed Release Oral Ca psule DULoxetine HCl 30MG Oral Capsule, Delayed Release DULoxetine HCl 30MG Oral Capsule, Delayed Release 03/2020 12:00:00 AM EST 1 CAPSULE BY MOUTH active DULoxetine HCl 30MG Oral Capsule, Delayed Release 01/30/2020 Unknown BY MOUTH DAILY 1 CAPSULE 5969 30 [facility] duloxetine 30 MG Delayed Release Oral Ca psule DULoxetine HCl 30MG Oral Capsule, Delayed Release DULoxetine HCl 30MG Oral Capsule, Delayed Release 03/2020 12:00:00 AM EST 1 CAPSULE BY MOUTH active DULoxetine HCl 30MG Oral Capsule, Delayed Release 01/30/2020 Unknown BY MOUTH DAILY 1 CAPSULE 5969 30 [facility] Diclofenac Sodium 0.03 MG/MG Topical Gel Diclofenac Sodium 3% Topical application Gel/Jelly Diclofenac Sodium 3% Topical application Gel/Jelly 01/30/2020 12:00:00 AM EST 1 g TOPICAL active Diclofenac Sodium 3% Topical application Gel/Jelly 01/30/2020 Unknown TOPICAL NEEDED E VERY 12HR 1 APPLICATION [id number] [facility] pital Diclofenac Sodium 0.03 MG/MG Topical Gel Diclofenac Sodium 3% Topical application Gel/Jelly Diclofenac Sodium 3% Topical application Gel/Jelly 01/30/2020 12:00:00 AM EST 1 g TOPICAL active Diclofenac Sodium 3% Topical application Gel/Jelly 01/30/2020 Unknown TOPICAL NEEDED E VERY 12HR 1 APPLICATION [id number] [facility] pital Diclofenac Sodium 0.01 MG/MG Topical Gel [Voltaren] Voltaren Gel 1% Topical application Gel/Jelly Voltaren Gel 1% Topical application Gel/Jelly 12/04/19 12:00:00 AM EST 4 GRAM TOPICAL active Voltaren Gel 1% Topical application Gel/Jelly 12/04/2019 Unknown TOPICAL THREE TIMES A DAY 4 GRAM [id number] [facility] ezetimibe 10 MG Oral Tablet [Zetia] Zetia 10MG Oral Ta blet Zetia 10MG Oral Tablet 12/04/2019 12:00:00 AM EST 1 TABLET BY MOUTH active Zetia 10MG Oral Tablet 12/04/2019 Unknown BY MOUTH DAILY 1 TABLET [id number] [facility] Nitroglycerin 0.4 MG Sublingual Tablet [ Nitrostat] Nitrostat 0.4MG Sublingual Tablet Nitrostat 0.4MG Sublingual Tablet 12/04/2019 12:00:00 AM EST 0.4 MILLIGRAMS SUBLINGUAL active Nitrostat 0.4MG Quarles blingual Tablet 12/04/2019 Unknown SUBLINGUAL 1 SL EVERY 5 MIN X3 PRN 0.4 MILLIGRAMS 609386 [facility] Medrol Dosepak 4MG Oral Tablet 12/04/2019 12:00:00 AM EST 1 TABLET BY MOUTH active Medrol Dosepak 4MG Oral Tablet 0 Unknown BY MOUTH DIRECTED 1 TABLET 538160 [facility] spital Nitroglycerin 0.4 MG Sublingual Tablet [ Nitrostat] Nitrostat 0.4MG Sublingual Tablet Nitrostat 0.4MG Sublingual Tablet 12/04/2019 12:00:00 AM EST 0.4 MILLIGRAMS SUBLINGUAL active Nitrostat 0.4MG Quarles blingual Tablet 12/04/2019 Unknown SUBLINGUAL 1 SL EVERY 5 MIN X3 PRN 0.4 MILLIGRAMS 959228 [facility] pantoprazole 20 MG Delayed Release Oral Tablet [Protonix] Protonix 20MG Oral Tablet, Enteric Coated Protonix 20MG Oral Tablet, Enteric Coated 12/04/2019 12:00:00 AM EST 1 TABLET BY MOUTH active Protonix 20MG Oral Tablet, Enteric Coated 12/04/2019 Unknown BY MOUTH DAILY 1 TABLET 235871 [facility] 24 HR metoprolol succinate 25 MG Extende d Release Oral Tablet Metoprolol Succinate 25MG Oral Tablet, Extended Release Metoprolol Succinate 25MG Oral Tablet, Extended Release 12/04/2019 12:00:00 AM EST 25 MILLIGRAMS ORAL active Metoprolol Succinate 25MG Oral Tablet, Ex tended Release 12/04/2019 Unknown ORAL TWICE A DAY 25 MILLIGRAMS 706276 [facility] Medrol Dosepak 4MG Oral Tablet 12/04/2019 12:00:00 AM EST 1 TABLET BY MOUTH active Medrol Dosepak 4MG Oral Tablet 0 Unknown BY MOUTH DIRECTED 1 TABLET 139820 [facility] spital celecoxib 100 MG Oral Capsule [Celebrex] CeleBREX 100M G Oral Capsule CeleBREX 100MG Oral Capsule 12/04/2019 12:00:00 AM EST 1 CAPSULE BY MOUTH active CeleBREX 100MG Oral Capsule 12/04/2019 Unknown BY MOUTH NEEDE D EVERY 12HR 1 CAPSULE [id number] [facility] pital Nitroglycerin 0.4 MG Sublingual Tablet [ Nitrostat] Nitrostat 0.4MG Sublingual Tablet Nitrostat 0.4MG Sublingual Tablet 12/04/2019 12:00:00 AM EST 0.4 MILLIGRAMS SUBLINGUAL active Nitrostat 0.4MG Quarles blingual Tablet 12/04/2019 Unknown SUBLINGUAL 1 SL EVERY 5 MIN X3 PRN 0.4 MILLIGRAMS [id number] [facility] Diclofenac Sodium 0.01 MG/MG Topical Gel [Voltaren] Voltaren Gel 1% Topical application Gel/Jelly Voltaren Gel 1% Topical application Gel/Jelly 12/04/19 20 12:00:00 AM EST 4 GRAM TOPICAL active Voltaren Gel 1% Topical application Gel/Jelly 12/04/2019 Unknown TOPICAL THREE TIMES A DAY 4 GRAM [id number] [facility] Diclofenac Sodium 0.01 MG/MG Topical Gel [Voltaren] Voltaren Gel 1% Topical application Gel/Jelly Voltaren Gel 1% Topical application Gel/Jelly 12/04/19 12:00:00 AM EST 4 GRAM TOPICAL active Voltaren Gel 1% Topical application Gel/Jelly 12/04/2019 Unknown TOPICAL THREE TIMES A DAY 4 GRAM [id number] [facility] pantoprazole 20 MG Delayed Release Oral Tablet [Protonix] Protonix 20MG Oral Tablet, Enteric Coated Protonix 20MG Oral Tablet, Enteric Coated 12/04/2019 12:00:00 AM EST 1 TABLET BY MOUTH active Protonix 20MG Oral Tablet, Enteric Coated 12/04/2019 Unknown BY MOUTH DAILY 1 TABLET [id number] [facility] Furosemide 20 MG Oral Tablet [Lasix] Lasix 20MG Oral T ablet Lasix 20MG Oral Tablet 12/04/2019 12:00:00 AM EST 1 TABLET BY MOUTH active Lasix 20MG Oral Tablet 12/04/2019 Unknown BY MOUTH TWICE A DAY 1 TABLET [facility] ezetimibe 10 MG Oral Tablet [Zetia] Zetia 10MG Oral Ta blet Zetia 10MG Oral Tablet 12/04/2019 12:00:00 AM EST 1 TABLET BY MOUTH active Zetia 10MG Oral Tablet 12/04/2019 Unknown BY MOUTH DAILY 1 TABLET [id number] [facility] 24 HR metoprolol succinate 25 MG Extende d Release Oral Tablet Metoprolol Succinate 25MG Oral Tablet, Extended Release Metoprolol Succinate 25MG Oral Tablet, Extended Release 12/04/2019 12:00:00 AM EST 25 MILLIGRAMS ORAL active Metoprolol Succinate 25MG Oral Tablet, Ex tended Release 12/04/2019 Unknown ORAL TWICE A DAY 25 MILLIGRAMS 286217 [facility] celecoxib 100 MG Oral Capsule [Celebrex] CeleBREX 100M G Oral Capsule CeleBREX 100MG Oral Capsule 12/04/2019 12:00:00 AM EST 1 CAPSULE BY MOUTH active CeleBREX 100MG Oral Capsule 12/04/2019 Unknown BY MOUTH NEEDE D EVERY 12HR 1 CAPSULE [id number] [facility] pital Furosemide 20 MG Oral Tablet [Lasix] Lasix 20MG Oral T ablet Lasix 20MG Oral Tablet 12/04/2019 12:00:00 AM EST 1 TABLET BY MOUTH active Lasix 20MG Oral Tablet 12/04/2019 Unknown BY MOUTH TWICE A DAY 1 TABLET [facility] pantoprazole 20 MG Delayed Release Oral Tablet [Protonix] Protonix 20MG Oral Tablet, Enteric Coated Protonix 20MG Oral Tablet, Enteric Coated 12/04/2019 12:00:00 AM EST 1 TABLET BY MOUTH active Protonix 20MG Oral Tablet, Enteric Coated 12/04/2019 Unknown BY MOUTH DAILY 1 TABLET [id number] [facility] ezetimibe 10 MG Oral Tablet [Zetia] Zetia 10MG Oral Ta blet Zetia 10MG Oral Tablet 12/04/2019 12:00:00 AM EST 1 TABLET BY MOUTH active Zetia 10MG Oral Tablet 12/04/2019 Unknown BY MOUTH DAILY 1 TABLET [id number] [facility] 24 HR metoprolol succinate 25 MG Extende d Release Oral Tablet Metoprolol Succinate 25MG Oral Tablet, Extended Release Metoprolol Succinate 25MG Oral Tablet, Extended Release 12/04/2019 12:00:00 AM EST 25 MILLIGRAMS ORAL active Metoprolol Succinate 25MG Oral Tablet, Ex tended Release 12/04/2019 Unknown ORAL TWICE A DAY 25 MILLIGRAMS [id number] [facility] MG Oral Capsule [Celebrex] CeleBREX 100M G Oral Capsule CeleBREX 100MG Oral Capsule 12/04/2019 12:00:00 AM EST 1 CAPSULE BY MOUTH active CeleBREX 100MG Oral Capsule 12/04/2019 Unknown BY MOUTH NEEDE D EVERY 12HR 1 CAPSULE [id number] [facility] Furosemide 20 MG Oral Tablet [Lasix] Lasix 20MG Oral T ablet Lasix 20MG Oral Tablet 12/04/2019 12:00:00 AM EST 1 TABLET BY MOUTH active Lasix 20MG Oral Tablet 12/04/2019 Unknown BY MOUTH TWICE A DAY [facility] Dose[facility] 4MG Oral Tablet 12/04/2019 12:00:00 AM EST 1 TABLET BY MOUTH active Medrol Dosepak 4MG Oral Tablet 0 Unknown BY MOUTH DIRECTED 1 TABLET [id number] [facility] Insurance Providers Payer name Policy type / Coverage type Policy ID Covered libertarian ID Covered libertarian's relationship to starr Policy Starr Plan Information CHAVEZ [id number] [employer] MEDICAID MANAGED CARE - CLINIC [id number] undefined [id number] [employer] MEDICA[employer] MANAGED CARE - OP [id number] efined [id number] [place] [id number] S [id number] CH[employer]Z-PHYSICIAN [id number] undefined [id number] CH[employer]Z [id number] undefined [id number] [employer]AVEZ I [id number] Self [id number] [employer] MEDICIAD MANAGED CARE-RECURRING [id number] MEDICAID [facility]-OP [id number] [place] - Medicaid [employer] Health Maintenance Organization (HMO) Self [employer]Z MEDICAID [id number] Kerri [id number] MEDICAID [id number] [facility] [id number] Problems, Conditions, and Diagnoses Code Display Name Description Problem Type Effective Dates Data Source(s) E6601 Morbid (severe) obesity due to excess ca lories Morbid (severe) obesity due to excess calories Diagnosis 09/21/2020 12:42:00 PM EDT [facility] E785 Hyperlipidemia, unspecified Hyperlipidemia, unspecifie d Diagnosis 09/21/2020 12:42:00 PM EDT [facility] E119 Type 2 diabetes mellitus without complic ations Type 2 diabetes mellitus without complications Diagnosis 09/21/2020 12:42:00 PM EDT [facility] M545 Low back pain Low back pain Diagnosis 09/21/2020 11:37:00 AM EDT [facility] F4312 Post-traumatic stress disorder, chronic Post-traumatic stress disorder, chronic Diagnosis 09/21/2020 11:37:00 AM EDT [facility] F341 Dysthymic disorder Dysthymic disorder Diagnosis 0 11:37:00 AM EDT [facility] R609 Edema, unspecified Edema, unspecified Diagnosis 0 11:37:00 AM T [facility] Z6845 Body mass index [BMI] 70 or greater, abigail lt Body mass index [BMI] 70 or greater, adult Diagnosis 09/21/2020 11:37:00 AM T [facility] N200 Calculus of kidney Calculus of kidney Diagnosis 0 11:37:00 AM EDT [facility] R1030 Lower abdominal pain, unspecified Lower abdomina l pain, unspecified Diagnosis 09/21/2020 11:37:00 AM EDT [facility] N132 N132 Diagnosis 08/11/2020 02:20:00 PM ED T [facility] R1032 Left lower quadrant pain Left lower quadrant pain Diag nosis 08/11/2020 02:20:00 PM EDT [facility] N132 Hydronephrosis with renal and ureteral c alculous obstruction Hydronephrosis with renal and ureteral calculous obstruction Diagnosis 020 02:20:00 PM EDT [facility] Z6844 Body mass index (BMI) 60.0-69.9, adult B mohit mass index (BMI) 60.0-69.9, adult Diagnosis 03/05/2020 02:30:00 PM EDT [facility] S71161 Pain in left knee Pain in left knee Diagnosis 03/05/2020 02:30:00 PM EDT [facility] M4646 Discitis, unspecified, lumbar region Discitis, u nspecified, lumbar region Diagnosis 01/30/2020 01:30:00 PM EST [facility] M1990 Unspecified osteoarthritis, unspecified site Unspecified osteoarthritis, unspecified site Diagnosis 12/04/2019 02:47:00 PM EST [facility] E804 Gilbert syndrome Gilbert syndrome Diagnosis 12/04/2019 02 :47:00 PM EST [facility] I10 Essential (primary) hypertension Essential (primary) h ypertension Diagnosis 12/04/2019 02:47:00 PM EST [facility] I252 Old myocardial infarction Old myocardial infarction Di agnosis 12/04/2019 02:47:00 PM EST [facility] 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 Diagnosis 12/04/2019 02:47:[address] [facility] Results ID Date Data Source [id number] 09/21/2020 12:50:00 PM EDT [facility] Name Value Range Interpretation Code Description Data Purvi rce(s) Supporting Document(s) Hemoglobin A1c/Hemoglobin.total in Blood 5.8 % 4.0 - 5.6 Above high normal [facility] Glucose mean value [Mass/volume] in Blood Estimated fr om glycated hemoglobin 120 mg/dL [facility] \BLDo\HEMOGLO BIN A1C\BLDx\ 4.0 - 5.6%: Normal 5.7 - 6.4%: Suggests Impaired Glucose Metabolism > or = 6.5%: Abnormal Estimated average glucose calculated using ADAG Study formula as recommended by the [place] [employer]. ID Date Data Source [id number] 09/21/2020 12:50:00 PM EDT [facility] Name Value Range Interpretation Code Description Data Purvi rce(s) Supporting Document(s) Cholesterol [Mass/volume] in Serum or Plasma 237 mg/dL [facility] Triglyceride [Mass/volume] in Serum or Plasma 100 mg/dL [facility] Cholesterol in HDL [Mass/volume] in Serum or Plasma 45 mg/dL [facility] Cholesterol in LDL [Mass/volume] in Serum or Plasma by calculati on 172 mg/dL [facility] CHOL/HDL 5.27 [facility] l \BLDo\INTERPRE TATION\BLDx\ REFERENCE RANGES (NATIONAL CHOLESTEROL [...] mg/dL VERY HIGH ID Date Data Source [id number] 09/21/2020 12:50:00 PM EDT [facility] Name Value Range Interpretation Code Description Data Purvi rce(s) Supporting Document(s) BASIC METABOLIC PANEL [facility] BASIC METABOLIC PANEL Sodium [Moles/volume] in Serum or Plasma 138 mEq/L 136 - 145 [facility] Potassium [Moles/volume] in Serum or Plasma 4.0 mEq/L 3.5 - 5.1 [facility] Chloride [Moles/volume] in Serum or Plasma 102 mEq/L 98 - 107 [facility] Carbon dioxide, total [Moles/volume] in Serum or Plasma 27.1 mEq /L 21.0 - 32.0 [facility] Glucose [Mass/volume] in Serum or Plasma 97 mg/dL 70 - 100 [facility] Urea nitrogen [Mass/volume] in Serum or Plasma 12 mg/dL 7 - 18 [facility] CREATININE SERUM 0.98 mg/dL 0.70 - 1.30 [facility] AGE 45 yrs [facility] eGFR NON-AFR AMR >60 [facility] eGFR AFR AMR >60 [facility] ital BUN/CREAT 12 6 - 25 [facility] Calcium [Mass/volume] in Serum or Plasma 9.5 mg/dL 8.8 - 10.2 [facility] ANION GAP 9 7 - 15 [facility] l Estimated GFR reference r yasir: > 60 mL/min/1.73m >18 years: Calculated using IDMS traceable MDRD Study Equation <18 years: Calculated using IDMS traceable Bedside Paul Equation Procedure Vital Signs ID Date Data Source UNK Name Value Range Interpretation Code Description Data Source(s) Body weight 215.46 kg 215.46 kg [facility] Body temperature 36.6 Celia 36.6 Celia [facility] Respiratory rate 20 /min 20 /min [facility] Heart rate 97.0 /min 97.0 /min [facility]ital Oxygen saturation in Arterial blood by Pulse oximetry 97 % 97 % [facility] Body height 175.2600 cm 175.2600 cm [facility] Body surface area Derived from formula 3.24 m2 3.24 m2 [facility] Diastolic blood pressure 84 mm[Hg] 84 mm[Hg] [facility] Systolic blood pressure 139 mm[Hg] 139 mm[Hg] [facility] Body mass index (BMI) [Ratio] 70.14 kg/m2 70.14 kg/m2 [facility] Body weight 212.73 kg 212.73 kg [facility] Body temperature 37.3 Celia 37.3 Celia [facility] Respiratory rate 20 /min 20 /min [facility] Heart rate 106.0 /min 106.0 /min [facility] Oxygen saturation in Arterial blood by Pulse oximetry 96 % 96 % [facility] Body height 175.2600 cm 175.2600 cm [facility] Body surface area Derived from formula 3.22 m2 3.22 m2 [facility] Diastolic blood pressure 94 mm[Hg] 94 mm[Hg] [facility] Systolic blood pressure 154 mm[Hg] 154 mm[Hg] [facility] Body mass index (BMI) [Ratio] 69.26 kg/m2 69.26 kg/m2 [facility] Patient Treatment Plan of Care Planned Activity Planned Date Details Description Data Source (s) Diclofenac Sodium 20 MG/ML Topical Solution [Pennsaid] 02/13/2020 12:00:00 AM EDT [facility] Diclofenac Sodium 0.03 MG/MG Topical Gel 01/30/2020 12:00:[address] [facility] duloxetine 30 MG Delayed Release Oral Capsule 01/30/2020 12:00:[address] [facility] Diclofenac Sodium 0.03 MG/MG Topical Gel 01/30/2020 12:00:[address] [facility] duloxetine 30 MG Delayed Release Oral Capsule 01/30/2020 12:00:[address] [facility] Nitroglycerin 0.4 MG Sublingual Tablet [Nitrostat] 12/04/2019 12 :00:[address] [facility] Medrol Dosepak 4MG Oral Tablet 12/04/2019 12:00:[address] [facility] Furosemide 20 MG Oral Tablet [Lasix] 12/04/2019 12:00:[address] [facility] ezetimibe 10 MG Oral Tablet [Zetia] 12/04/2019 12:00:[address] [facility] Diclofenac Sodium 0.01 MG/MG Topical Gel [Voltaren] 12/04/19 12:00:[address] [facility] pantoprazole 20 MG Delayed Release Oral Tablet [Proton ix] 12/04/2019 12:00:00 AM [facility] 24 HR metoprolol succinate 25 MG Extended Release Oral Tablet 12/04/2019 12:00:00 AM [facility] celecoxib 100 MG Oral Capsule [Celebrex] 12/04/2019 12:00:[address] [facility] 24 HR metoprolol succinate 25 MG Extended Release Oral Tablet 12/04/2019 12:00:00 AM [facility] celecoxib 100 MG Oral Capsule [Celebrex] 12/04/2019 12:00:[address] [facility] Nitroglycerin 0.4 MG Sublingual Tablet [Nitrostat] 12/04/2019 12 :00:[address] [facility] Medrol Dosepak 4MG Oral Tablet 12/04/2019 12:00:[address] [facility] Furosemide 20 MG Oral Tablet [Lasix] 12/04/2019 12:00:[address] [facility] ezetimibe 10 MG Oral Tablet [Zetia] 12/04/2019 12:00:[address] [facility] Diclofenac Sodium 0.01 MG/MG Topical Gel [Voltaren] 12/04/19 12:00:[address] [facility] pantoprazole 20 MG Delayed Release Oral Tablet [Proton ix] 12/04/2019 12:00:00 AM [facility] celecoxib 100 MG Oral Capsule [Celebrex] 12/04/2019 12:00:[address] [facility] 24 HR metoprolol succinate 25 MG Extended Release Oral Tablet 12/04/2019 12:00:00 AM [facility] pantoprazole 20 MG Delayed Release Oral Tablet [Proton ix] 12/04/2019 12:00:00 AM [facility] Medrol Dosepak 4MG Oral Tablet 12/04/2019 12:00:[address] [facility] Furosemide 20 MG Oral Tablet [Lasix] 12/04/2019 12:00:[address] [facility] Nitroglycerin 0.4 MG Sublingual Tablet [Nitrostat] 12/04/2019 12 :00:[address] [facility] ezetimibe 10 MG Oral Tablet [Zetia] 12/04/2019 12:00:[address] [facility] Diclofenac Sodium 0.01 MG/MG Topical Gel [Voltaren] 12/04/19 12:00:[address] [facility]
[2021-01-12] MEDS ORDERED: GI COCKTAIL 50ML BTL(HYOSCYAMINE/MAALOX/LIDOCAINE VISCOUS)(1:3:1) PO ONE (09:30)
[2021-01-12] MEDS ORDERED: KETOROLAC 30 MG/ML 1ML VIAL IV ONE (10:15)
[2021-01-12 10:19] LABS: CK-MB VALUE MASS < 1.0 NG/ML (<3.6); CPK CREATINE PHOSPHOKINASE 93 U/L (39-308); MB/CK RELATIVE INDEX 1.08 (< OR =4); TROPONIN I < 0.02 NG/ML (< 0.10)
[2021-01-12 11:16] LABS: RSV AMPLIFICATION NEGATIVE (NEGATIVE)
--- NOTE | 2021-01-12 13:05 | REP ---
INDICATION: r/o choledocolithiasis. COMPARISON: Comparison CT study January 12, 2021.. TECHNIQUE: The patient was just barely able to be position within the scanning gantry because of his size. [employer] images were attempted. These were unsatisfactory. Because of patient's size and inability to use anterior coil, no further imaging could be acquired. Study could not be completed FINDINGS: Gallstones are visible in the gallbladder on the few grocery cashier images which were obtained. These images are otherwise uninterpretable. IMPRESSION: Cholelithiasis. Incomplete scan, technically impossible to proceed due to patient body habitus. <Electronically signed by Víctor Montoya > 01/12/21 4731
[2021-01-12] MEDS ORDERED: PANT40TA29 PO (13:26)
[2021-01-12 13:56] VITALS: BP 117/56
--- NOTE | 2021-01-12 19:42 | ECGEPIP ---
[facility] - ED Test Date: 2021-01-12 Pat Name: ANNABELLE MCMAHON Department: Room: - Gender: Male Grounds Keeper: sarah : 1975 Requested By: MARSHA Hackett PA-C Order Number: [id number] Reading MD: Kanu Foreman Measurements Intervals Dawson Rate: 99 P: 32 [place]: 146 QRS: 64 QRSD: 88 T: 39 QT: 344 QTc: 441 Interpretive Statements Normal sinus rhythm Low voltage QRS SIMILAR TO PRIOR ON SAME DATE Electronically Signed on 01-12-2021 19:42:21 EST by Kanu Foreman
== END 2021-01-12 14:20 | disposition home or self-care (01) ==
LOC: M ED 06:27
DX: K80.50 Calculus of bile duct without cholangitis or cholecystitis without obstruction (principal); K21.9 Gastro-esophageal reflux disease without esophagitis; E80.6 Other disorders of bilirubin metabolism; N20.2 Calculus of kidney with calculus of ureter; R00.0 Tachycardia, unspecified; I25.2 Old myocardial infarction; K22.10 Ulcer of esophagus without bleeding; Z87.442 Personal history of urinary calculi; K57.32 Diverticulitis of large intestine without perforation or abscess without bleeding; E78.5 Hyperlipidemia, unspecified; Z95.5 Presence of coronary angioplasty implant and graft; E66.01 Morbid (severe) obesity due to excess calories; Z79.899 Other long term (current) drug therapy; Z88.1 Allergy status to other antibiotic agents
CPT/HCPCS: 71275; 74021; 74177; 74181; 76705; 80048; 80076; 81001; 82150; 82550; 82553; 83605; 83690; 83735; 83880; 85025; 85610; 85730; 87086; 87631; 93005; 93041; 96361; 96374; 96375; 96376; 99285; C9113; J1885; J2270; Q9967

== ENCOUNTER → 2021-03-22 | Outpatient (REF) | payer OTHER ==
[~2021-03-22] MED LIST changes: +PANT40TA29 PO
[2021-03-22 15:38] LABS: HEMATOCRIT 53.9 % (42.0-52.0); HEMOGLOBIN 16.5 g/dl (13.5-17.5); MEAN CORPUSCULAR HEMOGLOBIN 28.8 pg (27.0-33.0); MEAN CORPUSCULAR HGB CONC 30.6 g/dl (32.0-36.5); MEAN CORPUSCULAR VOLUME 94.1 fl (80.0-96.0); PLATELET COUNT, AUTOMATED 218 10^3/uL (150-450); RED BLOOD COUNT 5.73 10^6/uL (4.30-6.10); WHITE BLOOD COUNT 6.2 10^3/uL (4.0-10.0)
[2021-03-22 15:59] LABS: HEMOGLOBIN A1c 5.9 %
[2021-03-22 16:15] LABS: ALBUMIN 3.2 GM/DL (3.2-5.2); ALT/SGPT 27 U/L (12-78); BILIRUBIN,TOTAL 1.2 MG/DL (0.2-1.0); BLOOD UREA NITROGEN 11 MG/DL (7-18); CALCIUM LEVEL 9.3 MG/DL (8.5-10.1); CARBON DIOXIDE LEVEL 34 MEQ/L (21-32); CHLORIDE LEVEL 104 MEQ/L (98-107); CHOLESTEROL LEVEL 207 MG/DL (<200); CHOLESTEROL RISK RATIO 5.447 (<5); CREATININE FOR GFR 0.84 MG/DL (0.70-1.30); FREE T4 0.93 NG/DL (0.76-1.46); GLOMERULAR FILTRATION RATE > 60.0 (>60); GLUCOSE, FASTING 102 MG/DL (70-100); HDL CHOLESTEROL 38 MG/DL (>40); LDL CHOLESTEROL 144 MG/DL (<100); NON-HDL-C 169 MG/DL; POTASSIUM SERUM 4.6 MEQ/L (3.5-5.1); SODIUM LEVEL 141 MEQ/L (136-145); TOTAL PROTEIN 7.3 GM/DL (6.4-8.2); TRIGLYCERIDES LEVEL 124 MG/DL (<150)
== END ==
LOC: M SFHCPLAZ 14:31
PROVIDERS: ATTEND Physician Assistant
DX: Z13.29 Encounter for screening for other suspected endocrine disorder (principal); Z13.1 Encounter for screening for diabetes mellitus; E78.2 Mixed hyperlipidemia; Z00.00 Encounter for general adult medical examination without abnormal findings

== ENCOUNTER 2021-04-21 14:54 | Inpatient (IN) | payer OTHER ==
[~2021-04-21] VITALS: Ht 175.3 cm; Wt 235.0 kg
[2021-04-21] MEDS ORDERED: ONDANSETRON 4MG/2ML VIAL IV ONE (17:40)
[2021-04-21] MEDS ORDERED: MORPHINE 4 MG/ML 1ML VIAL/SYRINGE (J2270) IV ONE (17:40)
[2021-04-21] MEDS ORDERED: diphenhydrAMINE 25MG CAP PO ONE (18:00)
[2021-04-21 18:01] LABS: BASO # 0.1 10^3/uL (0.0-0.2); BASO % 0.7 % (0.0-1.0); EOS # 0.1 10^3/uL (0.0-0.5); EOS % 1.5 % (0.0-3.0); HEMATOCRIT 51.7 % (42.0-52.0); HEMOGLOBIN 16.5 g/dl (13.5-17.5); LYMPH # 1.3 10^3/uL (1.5-5.0); LYMPH % 18.1 % (24.0-44.0); MEAN CORPUSCULAR HEMOGLOBIN 29.2 pg (27.0-33.0); MEAN CORPUSCULAR HGB CONC 31.9 g/dl (32.0-36.5); MEAN CORPUSCULAR VOLUME 91.5 fl (80.0-96.0); MONO # 1.2 10^3/uL (0.0-0.8); NEUTROPHILS # 4.7 10^3/uL (1.5-8.5); NEUTROPHILS % 63.3 % (36.0-66.0); PLATELET COUNT, AUTOMATED 221 10^3/uL (150-450); RED BLOOD COUNT 5.65 10^6/uL (4.30-6.10); WHITE BLOOD COUNT 7.4 10^3/uL (4.0-10.0)
[2021-04-21 18:35] LABS: BLOOD UREA NITROGEN 9 MG/DL (7-18); C REACTIVE PROTEIN QUANTITATIV 7.91 MG/DL (0.00-0.30); CALCIUM LEVEL 9.4 MG/DL (8.5-10.1); CARBON DIOXIDE LEVEL 34 MEQ/L (21-32); CHLORIDE LEVEL 101 MEQ/L (98-107); CREATININE FOR GFR 0.82 MG/DL (0.70-1.30); GLOMERULAR FILTRATION RATE > 60.0 (>60); GLUCOSE, FASTING 84 MG/DL (70-100); POTASSIUM SERUM 3.7 MEQ/L (3.5-5.1); SODIUM LEVEL 139 MEQ/L (136-145)
--- NOTE | 2021-04-21 19:23 | REP ---
INDICATION: R/O dvt LLE. COMPARISON: None. TECHNIQUE: Left {lower extremity duplex venous scanning is performed from the groin to the ankle level. FINDINGS: Scan quality is inhibited substantially by patient body habitus. The calf veins could not be visualized due to this. The patient declined and precluded us from scanning from the groin to the mid thigh. Exam is quite limited. The mid and distal femoral vein is clear. IMPRESSION: Very limited exam. No direct evidence of DVT. The calf veins and the proximal femoral veins could not be visualized as above. Scan quality inhibited.. <Electronically signed by Víctor Montoya > 04/21/219
[2021-04-21 19:26] LABS: ERYTHROCYTE SEDIMENTATION RATE 15 mm/hr (0-15)
[2021-04-21] MEDS ORDERED: VANCOMYCIN HCL 2,000 MG in D5W 500 ML IV ONE (19:35)
[2021-04-21] MEDS ORDERED: VANCOMYCIN HCL 1,000 MG, VIAL MATE ADAPTER 1 EACH in NS 250 ML IV ONE ×6 (19:45)
[2021-04-21] MEDS ORDERED: TURM500C PO (20:45)
[2021-04-21] MEDS ORDERED: DICL1GEL3 TOP (20:45)
[2021-04-21] MEDS ORDERED: CELE1CAP PO (20:45)
[2021-04-21] MEDS ORDERED: DULO1CAP5 PO (20:45)
[2021-04-21] MEDS ORDERED: ASPI-164 PO (20:45)
[2021-04-21] MEDS ORDERED: PANT-23 PO (20:46)
[2021-04-21] MEDS ORDERED: ACETAMINOPHEN TAB 650MG DOSE (2X325MG) PO PRN (21:05)
[2021-04-21] MEDS ORDERED: MOM 30ML SUSPENSION UDC PO PRN (21:05)
[2021-04-21] MEDS ORDERED: MAALOX 30 ML SUSP *UDC PO PRN (21:05)
[2021-04-21 21:13] LABS: RSV AMPLIFICATION NEGATIVE (NEGATIVE)
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
[2021-04-21] MEDS: LevoFLOXacin 750 MG TABLET PO SCH (21:33)
[2021-04-21] MEDS: metroNIDAZOLE (FLAGYL) 500MG TABLET PO SCH (21:33)
[2021-04-21 23:30] VITALS: BP 142/91
[2021-04-22] MEDS ORDERED: traMADol 50 MG TAB PO ONE (01:35)
[2021-04-22] MEDS ORDERED: VANCOMYCIN HCL 1,000 MG, VIAL MATE ADAPTER 1 EACH in NS 250 ML IV SCH ×3 (04:00→09:00)
[2021-04-22] MEDS: HEPARIN SOD (PORCINE) 5000UNITS/ML 1ML VIAL/SYRINGE SC SCH ×3 (05:43→21:07)
[2021-04-22] MEDS: metroNIDAZOLE (FLAGYL) 500MG TABLET PO SCH ×3 (05:43→21:05)
[2021-04-22 06:00] VITALS: BP 120/60
[2021-04-22] MEDS: DULoxetine 30 MG CAP (CYMBALTA) PO SCH (07:50)
[2021-04-22] MEDS: PANTOPRAZOLE 40MG TAB (PROTONIX) PO SCH (07:52)
[2021-04-22] MEDS: ACETAMINOPHEN 500 MG TAB PO PRN ×2 (07:52→13:30)
[2021-04-22] MEDS: DOCUSATE SODIUM 100MG CAPSULE PO SCH ×2 (07:52→21:00)
[2021-04-22] MEDS: EZETIMIBE 10 MG TAB (ZETIA) PO SCH (07:52)
[2021-04-22] MEDS: ASPIRIN 81MG ENTERIC TABLET PO SCH (07:53)
[2021-04-22] MEDS: FUROSEMIDE 20 MG TAB PO SCH (07:53)
[2021-04-22 07:58] LABS: BASO % 0.4 % (0.0-1.0); EOS # 0.1 10^3/uL (0.0-0.5); EOS % 1.2 % (0.0-3.0); HEMATOCRIT 46.9 % (42.0-52.0); HEMOGLOBIN 14.6 g/dl (13.5-17.5); LYMPH # 0.9 10^3/uL (1.5-5.0); LYMPH % 13.5 % (24.0-44.0); MEAN CORPUSCULAR HEMOGLOBIN 29.1 pg (27.0-33.0); MEAN CORPUSCULAR HGB CONC 31.1 g/dl (32.0-36.5); MEAN CORPUSCULAR VOLUME 93.4 fl (80.0-96.0); MONO # 1.2 10^3/uL (0.0-0.8); NEUTROPHILS # 4.5 10^3/uL (1.5-8.5); NEUTROPHILS % 66.5 % (36.0-66.0); PLATELET COUNT, AUTOMATED 215 10^3/uL (150-450); RED BLOOD COUNT 5.02 10^6/uL (4.30-6.10); WHITE BLOOD COUNT 6.7 10^3/uL (4.0-10.0)
[2021-04-22 08:26] LABS: ALBUMIN 2.4 GM/DL (3.2-5.2); ALT/SGPT 23 U/L (12-78); BILIRUBIN,TOTAL 1.5 MG/DL (0.2-1.0); BLOOD UREA NITROGEN 8 MG/DL (7-18); CALCIUM LEVEL 8.5 MG/DL (8.5-10.1); CARBON DIOXIDE LEVEL 33 MEQ/L (21-32); CHLORIDE LEVEL 102 MEQ/L (98-107); CREATININE FOR GFR 0.93 MG/DL (0.70-1.30); GLOMERULAR FILTRATION RATE > 60.0 (>60); GLUCOSE, FASTING 132 MG/DL (70-100); MAGNESIUM LEVEL 2.3 MG/DL (1.8-2.4); POTASSIUM SERUM 5.1 MEQ/L (3.5-5.1); SODIUM LEVEL 135 MEQ/L (136-145); TOTAL PROTEIN 7.7 GM/DL (6.4-8.2)
[2021-04-22] MEDS ORDERED: DULoxetine 30 MG CAP (CYMBALTA) PO SCH (09:00)
--- NOTE | 2021-04-22 12:42 | IPNPDOC ---
Subjective Date Seen The patient was seen on 04/22/21. Subjective Chief Complaint/HPI Complains of left leg pain. No fever noted in hospital. Denies any SOB. Reports has been ambulating to the bathroom. Objective Physical Examination General Exam: Positive: Alert, Cooperative, No Acute Distress Eye Exam: Positive: PERRLA, Conjunctiva & lids normal, EOMI; Negative: Sclera icteric ENT Exam: Positive: Atraumatic, Mucous membr. moist/pink, Pharynx Normal Neck Exam: Positive: Supple; Negative: JVD, thyromegaly Chest Exam: Positive: Clear to auscultation, Normal air movement Heart Exam: Positive: Rate Normal, Regular Rhythm, Normal S1, Normal S2; Negative: Murmurs, Rubs Abdomen Exam: Positive: Normal bowel sounds, Soft; Negative: Tenderness Extremity Exam: Positive: Tenderness (left leg), Other (redness left leg) Skin Exam: Positive: Other skin issue (bilateral chronic dry skin in the legs , chronic stasis changes. ) Assessment /Plan Assessment 45-year-old male with a history of morbid obesity, BMI 76, coronary artery disease s/p [place], s/p 1 stent 5 years ago at [facility], hyperlipidemia, peptic ulcer disease, GERD, left knee replacement, left shoulder surgery, presented to the ER with a 2 day history of left lower leg edema, erythema and swelling. patient was admitted for cellulitis of left leg. Left leg cellulitis MRSA negative will dc vancomycin continue levofloxacin and metronidazole. DVT scan was incomplete . patient refused further . pain control with toradol Super morbid obesity wit BMI of 76 this complicates care chronic pain on duloxetine. Morbid obesity with MATTY + obesity hypoventilation spo2 drops to 60% when sleeping even with 5 L of oxygen by nasal canula. has not used CPAP machine for more than 5 years reports it is broken. Will get ABG will need sleep study on discharge. No opiates. CAD s/p OK, s/p stent x 1 at [facility] 2016 continue asa HLD Ezetimibe. GERD/ Peptic ulcer disease PPI ANXIETY, DEPRESSION, PTSD continue home meds. GILBERTS SYNDROME (GENETIC LIVER DISEASE - NO MUSCLE RELAXERS!) mild elevation of bilirubin noted. Renal stones No issues at present. Plan/VTE VTE Prophylaxis Ordered?: Yes VS, I&O, 24H, Fishbone Vital Signs/I&O Vital Signs Date Time Temp Pulse Resp B/P (MAP) Pulse Ox O2 Delivery O2 Flow Rate FiO2 04/22/21 06:00 97.0 110 18 120/60 (80) 83 Room Air I&O- Last 24 Hours up to 6 AM 04/22/21 06:00 Intake Total 270 ml Output Total 0 ml Balance 270 ml Laboratory Data 24H LABS Laboratory Tests 2 04/21/21 17:45: Immature Granulocyte % (Auto) 0.4, Neutrophils (%) (Auto) 63.3, Lymphocytes (%) (Auto) 18.1L, Monocytes (%) (Auto) 16.0H, Eosinophils (%) (Auto) 1.5, Basophils (%) (Auto) 0.7, Neutrophils # (Auto) 4.7, Lymphocytes # (Auto) 1.3L, Monocytes # (Auto) 1.2H, Eosinophils # (Auto) 0.1, Basophils # (Auto) 0.1, Nucleated Red Blood Cells % (auto) 0.0, Erythrocyte Sedimentation Rate 15, Anion Gap 4L, Glomerular Filtration Rate > 60.0, Lactic Acid Level 1.3, Calcium Level 9.4, C- Reactive Protein, Quantitative 7.91H 04/21/21 19:52: Coronavirus (COVID-19)(PCR) NEGATIVE, Influenza Type A (RT-PCR) NEGATIVE, Influenza Type B (RT-PCR) NEGATIVE, Respiratory Syncytial Virus (PCR) NEGATIVE 04/22/21 05:49: Methicillin-Resist S.aureus DNA PCR NOT DETECTED 04/22/21 07:39: Immature Granulocyte % (Auto) 0.4, Neutrophils (%) (Auto) 66.5H, Lymphocytes (%) (Auto) 13.5L, Monocytes (%) (Auto) 18.0H, Eosinophils (%) (Auto) 1.2, Basophils (%) (Auto) 0.4, Neutrophils # (Auto) 4.5, Lymphocytes # (Auto) 0.9L, Monocytes # (Auto) 1.2H, Eosinophils # (Auto) 0.1, Basophils # (Auto) 0.0, Nucleated Red Blood Cells % (auto) 0.0, Anion Gap 0L, Glomerular Filtration Rate > 60.0, Calcium Level 8.5, C-Reactive Protein, Quantitative 10.70H, Magnesium Level 2.3, Total Bilirubin 1.5H, Aspartate Amino Transf (AST/SGOT) 54H, Alanine Aminotransferase (ALT/SGPT) 23, Alkaline Phosphatase 75, Total Protein 7.7, Albumin 2.4L, Albumin/Globulin Ratio 0.5 CBC/BMP Laboratory Tests 04/21/21 17:45 04/22/21 07:39 Microbiology Microbiology 04/21/21 Blood Culture, Received Pending 04/21/21 Blood Culture, Received Pending EVGENY MONCADA MD April 22, 2021 11:18
[2021-04-22] MEDS: KETOROLAC 30 MG/ML 1ML VIAL IV PRN ×2 (13:30→20:33)
[2021-04-22 13:51] LABS: BILIRUBIN,DIRECT < 0.1 MG/DL (0.0-0.2)
[2021-04-22 14:45] VITALS: BP 164/83
[2021-04-22 15:02] LABS: ABG BASE EXCESS 0.9 (-2.0-2.0); ABG HCO3 31.5 MEQ/L (22.0-26.0); ABG O2 SATURATION 69.8 % (95.0-99.0); ABG STANDARD HCO3 24.5 MEQ/L (22.0-26.0); ABG TOTAL CO2 33.9 MEQ/L (22.0-29.0)
[2021-04-22 15:05] LABS: ABG PARTIAL PRESSURE CO2 78.1 mmHg (35.0-45.0); ABG PARTIAL PRESSURE O2 40.2 mmHg (75.0-100.0); ABG pH (ARTERIAL) 7.223 UNITS (7.350-7.450)
--- NOTE | 2021-04-22 15:23 | IPNPDOC ---
Text Note Date of Service The patient was seen on 04/22/21. NOTE Patient moved to ICU because of acute on chronic respiratory failure with hyp ercarbia and hypoxia for BIPAP VS,Fishbone, I+O VS, Fishbone, I+O Laboratory Tests 04/21/21 17:45 04/22/21 07:39 Vital Signs Date Time Temp Pulse Resp B/P (MAP) Pulse Ox O2 Delivery O2 Flow Rate FiO2 04/22/21 14:45 97.8 87 16 164/83 (110) 85 Nasal Cannula 5.0 I&O- Last 24 Hours up to 6 AM 04/22/21 06:00 Intake Total 270 ml Output Total 0 ml Balance 270 ml EVGENY MONCADA MD April 22, 2021 15:23
[2021-04-22 15:25] VITALS: BP 121/63
--- NOTE | 2021-04-22 16:36 | REP ---
INDICATION: resp failure. COMPARISON: Comparison chest x-ray January 12, 2021. TECHNIQUE: Portable upright AP chest radiograph. FINDINGS: The lungs are symmetrically aerated and free of focal infiltrate. The pleural angles are sharp. EKG electrodes are seen. Heart is enlarged unchanged. Pulmonary vasculature slightly cephalized. Exam quality is inhibited by patient body habitus.. IMPRESSION: Prominent heart and vascular cephalization.. <Electronically signed by Víctor Montoya > 04/22/21 [id number]
[2021-04-22 17:06] LABS: ABG BASE EXCESS 2.5 (-2.0-2.0); ABG HCO3 32.9 MEQ/L (22.0-26.0); ABG PARTIAL PRESSURE O2 113.7 mmHg (75.0-100.0); ABG STANDARD HCO3 26.7 MEQ/L (22.0-26.0); ABG TOTAL CO2 35.4 MEQ/L (22.0-29.0)
[2021-04-22] MEDS: LevoFLOXacin 750 MG TABLET PO SCH (17:06)
[2021-04-22 17:12] LABS: ABG pH (ARTERIAL) 7.238 UNITS (7.350-7.450)
[2021-04-22 17:40] LABS: NT-PRO BNP 81 PG/ML (<125)
--- NOTE | 2021-04-22 18:11 | CCN ---
CRITICAL CARE NOTE DATE: 04/22/2021 I was called to the intensive care unit to evaluate this 45-year-old male with acute hypoxic hypercarbic respiratory failure, admitted with left leg pain of 48 hours' duration. He became somnolent. An arterial blood gas shows a pH of 7.22, pCO2 of 78, pO2 of 40. He was subsequently transferred to the intensive care unit for ventilatory support. PAST MEDICAL HISTORY: Per the electronic health record, includes: 1. Morbid obesity. 2. Coronary artery disease, status post stent placement. 3. Obstructive sleep apnea syndrome, not on pressure therapy. At bedside he is ill appearing, arousable but not conversant. His temperature is 97.8, pulse rate 87, respirations 16, blood pressure 164/83. HEENT: Oral and nasal mucosa are pink. His oropharynx is shallow. Upper pharyngeal aperture is very small in dimension. There is no stridor over the trachea. Turbulence is noted over the upper air column. Neck is quite springer. Jugular veins unable to be appreciated. Heart sounds are distant but regular. Breath sounds diminished globally. No focal sounds are appreciable. Chest is symmetric. Does move symmetrically with respiratory effort. Abdomen is soft and morbidly obese. Extremities show edema bilaterally with tense skin over the legs and blistering. Left leg is erythematous from the calf down. DIAGNOSTIC STUDIES: White cell count is 6.7, hemoglobin 14.6, hematocrit 46.9, platelet count 215,000. Differential white cell count shows 66.5% neutrophils. The electrolytes are sodium 135, potassium 5.1, chloride 102, CO2 of 33, BUN 8, creatinine 0.93, glucose 132. The lactic acid was 1.3. AST 54, ALT 23. Troponin less than 0.02. C-reactive protein 10.7. Albumin 2.4. Arterial blood gases showed a pH 7.22, pCO2 of 78, pO2 of 40 with a saturation of 69.8% on supplemental oxygen. The primary problem requiring critical attention acute hypoxic hypercarbic respiratory failure. We will attempt use of noninvasive ventilation to improve minute ventilation and decrease the pCO2. Followup arterial blood gases will be arranged. The patient may require formal endotracheal tube intubation for mechanical ventilatory support. We will also obtain a chest x-ray to rule out structural lung disease. Obstructive sleep apnea syndrome/obesity hypoventilation syndrome. The patient will require pressure therapy over the mcfp. Infectious disease. The patient apparently had a fever prior to admission. White count is not elevated, and his temperature is normal at this point; however, with the C-reactive protein elevated, I suspect that the left leg does represent a cellulitis. It should respond to antibiotics. Quinolones are prescribed. Extremity edema, likely secondary to right heart failure. I suspect pulmonary hypertension. Will obtain an echocardiogram. Ulcer prophylaxis is being addressed with Protonix. Deep venous thrombosis (DVT) prophylaxis is being addressed with subcutaneous heparin. The patient's condition is critical. Intensive care unit (ICU) care is appropriate. I have reviewed the case with the attending hospitalist service. I have also updated the ICU care team in regard to his status and care plan for day. One hundred and twenty-seven minutes was spent in the provision of bedside critical care and coordination, exclusive any time for the performance of procedures.
[2021-04-22 19:12] VITALS: BP 126/77
[2021-04-22 21:26] LABS: ABG BASE EXCESS 4.8 (-2.0-2.0); ABG HCO3 31.4 MEQ/L (22.0-26.0); ABG O2 SATURATION 97.2 % (95.0-99.0); ABG PARTIAL PRESSURE O2 83.7 mmHg (75.0-100.0); ABG STANDARD HCO3 28.7 MEQ/L (22.0-26.0); ABG TOTAL CO2 33.1 MEQ/L (22.0-29.0); ABG pH (ARTERIAL) 7.383 UNITS (7.350-7.450)
[2021-04-22 23:51] VITALS: BP 108/59
[2021-04-23 04:03] VITALS: BP 110/63
[2021-04-23 05:15] LABS: BASO % 0.4 % (0.0-1.0); EOS # 0.2 10^3/uL (0.0-0.5); EOS % 2.4 % (0.0-3.0); HEMATOCRIT 46.9 % (42.0-52.0); HEMOGLOBIN 14.5 g/dl (13.5-17.5); LYMPH # 1.1 10^3/uL (1.5-5.0); LYMPH % 14.7 % (24.0-44.0); MEAN CORPUSCULAR HEMOGLOBIN 28.9 pg (27.0-33.0); MEAN CORPUSCULAR HGB CONC 30.9 g/dl (32.0-36.5); MEAN CORPUSCULAR VOLUME 93.6 fl (80.0-96.0); MONO # 1.2 10^3/uL (0.0-0.8); MONO % 16.7 % (2.0-8.0); NEUTROPHILS # 4.8 10^3/uL (1.5-8.5); PLATELET COUNT, AUTOMATED 200 10^3/uL (150-450); RED BLOOD COUNT 5.01 10^6/uL (4.30-6.10); WHITE BLOOD COUNT 7.4 10^3/uL (4.0-10.0)
[2021-04-23] MEDS: HEPARIN SOD (PORCINE) 5000UNITS/ML 1ML VIAL/SYRINGE SC SCH ×3 (05:30→21:05)
[2021-04-23] MEDS: metroNIDAZOLE (FLAGYL) 500MG TABLET PO SCH ×3 (05:30→21:05)
[2021-04-23 05:36] LABS: ALBUMIN 2.6 GM/DL (3.2-5.2); ALT/SGPT 19 U/L (12-78); BILIRUBIN,TOTAL 1.3 MG/DL (0.2-1.0); BLOOD UREA NITROGEN 10 MG/DL (7-18); CALCIUM LEVEL 8.7 MG/DL (8.5-10.1); CARBON DIOXIDE LEVEL 36 MEQ/L (21-32); CHLORIDE LEVEL 101 MEQ/L (98-107); CREATININE FOR GFR 0.88 MG/DL (0.70-1.30); GLOMERULAR FILTRATION RATE > 60.0 (>60); GLUCOSE, FASTING 113 MG/DL (70-100); MAGNESIUM LEVEL 2.2 MG/DL (1.8-2.4); SODIUM LEVEL 138 MEQ/L (136-145); TOTAL PROTEIN 7.5 GM/DL (6.4-8.2)
[2021-04-23 07:49] VITALS: BP 151/84
[2021-04-23] MEDS: EZETIMIBE 10 MG TAB (ZETIA) PO SCH (08:05)
[2021-04-23] MEDS: ASPIRIN 81MG ENTERIC TABLET PO SCH (08:05)
[2021-04-23] MEDS: FUROSEMIDE 20 MG TAB PO SCH (08:06)
[2021-04-23] MEDS: PANTOPRAZOLE 40MG TAB (PROTONIX) PO SCH (08:06)
[2021-04-23] MEDS: DULoxetine 30 MG CAP (CYMBALTA) PO SCH (08:06)
[2021-04-23] MEDS: DOCUSATE SODIUM 100MG CAPSULE PO SCH ×3 (08:06→21:05)
[2021-04-23] MEDS: ACETAMINOPHEN 500 MG TAB PO PRN ×2 (08:06→17:39)
[2021-04-23] MEDS ORDERED: HYDROCORTISONE 1% CREAM 30 GM TOP PRN (08:25)
[2021-04-23 08:43] LABS: ABG BASE EXCESS 2.1 (-2.0-2.0); ABG HCO3 30.5 MEQ/L (22.0-26.0); ABG O2 SATURATION 95.3 % (95.0-99.0); ABG STANDARD HCO3 26.2 MEQ/L (22.0-26.0); ABG TOTAL CO2 32.5 MEQ/L (22.0-29.0); ABG pH (ARTERIAL) 7.295 UNITS (7.350-7.450)
[2021-04-23 08:44] LABS: ABG PARTIAL PRESSURE CO2 64.2 mmHg (35.0-45.0)
--- NOTE | 2021-04-23 08:55 | IPN ---
PULMONARY PROGRESS NOTE DATE: 04/23/2021 SUBJECTIVE: Mr. Beckett is awake and talkative. States he used his pressure therapy as much as possible. He was refusing at one point in time last evening after he became compensated. He has known obstructive sleep apnea and has been noncompliant. He states he was diagnosed in the . When discussing dietary habits, he does state that he drinks soda and high calorie drinks and has not been following any nutritional guidance. I had a long discussion regarding his morbid obesity with him, how it is affecting his health, and my concern he will have significant issues over time because of the severity of his obesity. He expresses understanding. He is willing to try nutritional counseling. He may even be a candidate for bariatric surgery. Overnight, he states he has had a headache from the oxygen therapy and other than that has been doing well. OBJECTIVE: VITAL SIGNS: Temperature 97.3, pulse 92, respiratory rate 20, blood pressure 110/63 with an oxygen saturation of 97% on 3 liters. GENERAL: Awake, alert, and oriented. Affect and mood are appropriate. Nutrition and hygiene are good. HEENT: Oral and nasal mucosa pink and moist without lesions. Bilateral psoriatic rash over both ears that extends into the hair line. Excoriations to the point where there are a few open areas. NECK: Supple and large in circumference. LYMPHATICS: No cervical, supraclavicular, or axillary adenopathy. CARDIAC: Distant S1, S2 without audible murmur, rub or gallop. No elevated JVP. There is significant peripheral edema, pitting to the level of the knee. PULMONARY: Clear to auscultation without rales, rhonchi, or wheezes, but decreased breath sounds throughout. No accessory muscle use. ABDOMEN: Obese, soft, nontender, and nondistended. No hepatosplenomegaly. No masses or hernias. EXTREMITIES: There are dependent chronic venous stasis changes; however, the left lower extremity has increased erythema consistent with his cellulitis. LABORATORY DATA: Shows sodium of 138, potassium 4.0, chloride 101, bicarb 36, BUN 10, creatinine 0.88. White blood cell count is 7.4, hemoglobin of 14.5 with a platelet count of 200,000. Arterial blood gas last evening was 7.38, pCO2 of 54, PaO2 of 84. Blood culture shows no growth. IMAGING DATA: Chest x-ray from yesterday was an AP film that appears to have cardiomegaly, but it is an AP film. Definite decreased lung volumes without infiltrate, mass, or lesion. IMPRESSION AND PLAN: 1. Respiratory failure secondary to morbid obesity. Will obtain arterial blood gas this morning. Will continue BiLevel therapy at night. Will switch him to a tabletop. He will require outpatient pressure therapy titration at time of discharge. 2. Morbid obesity. Dietary consultation ordered. I have adjusted his diet somewhat to a high fiber, low fat, and low cholesterol diet. He should avoid high sugar, high calorie drinks. Consideration of bariatric surgery workup as an outpatient. 3. Psoriasis with pretty significant rash on bilateral ears. I prescribed topical steroid cream. Overall, I believe the patient will require pressure therapy at night whether it is through CPAP alone or BiLevel noninvasive therapy. He will require all efforts towards weight loss in order to have a better prognosis in life. He expresses understanding. JOVON
--- NOTE | 2021-04-23 11:24 | IPNPDOC ---
Subjective Date Seen The patient was seen on 04/23/21. Subjective Chief Complaint/HPI Patient is awake , alert and conversant. Denies any SOB. Did sleep some last night but did not use the BIPAP much last night. This am his abg has again worsened from last night. Reports that his left leg is less sore. Objective Physical Examination General Exam: Positive: Alert, Cooperative, No Acute Distress Eye Exam: Positive: PERRLA, Conjunctiva & lids normal, EOMI; Negative: Sclera icteric ENT Exam: Positive: Atraumatic, Mucous membr. moist/pink, Pharynx Normal, Other ENT (dry rash on both the ears. ) Neck Exam: Positive: Supple Chest Exam: Positive: Clear to auscultation, Normal air movement Heart Exam: Positive: Rate Normal, Regular Rhythm, Normal S1, Normal S2; Negative: Murmurs, Rubs Telemetry: Positive: No significant arrhythmia Abdomen Exam: Positive: Normal bowel sounds, Soft; Negative: Tenderness Extremity Exam: Positive: Edema, Tenderness (left leg), Other (redness left leg) Skin Exam: Positive: Other skin issue (bilateral chronic dry skin in the legs , chronic stasis changes. ) Assessment /Plan Assessment 45-year-old male with a history of morbid obesity, BMI 76, coronary artery disease s/p [place], s/p 1 stent 5 years ago at [facility], hyperlipidemia, peptic ulcer disease, GERD, left knee replacement, left shoulder surgery, presented to the ER with a 2 day history of left lower leg edema, erythema and swelling. patient was admitted for cellulitis of left leg. Left leg cellulitis MRSA negative continue levofloxacin and metronidazole. DVT scan was incomplete . patient refused further . pain control with toradol Acute on chronic respiratory failure with hypercarbia and hypoxia currently on BIPAP. due to his morbid obesity will continue to need pressure therapy during sleep will need early sleep study after discharge. Morbid obesity with MATTY + obesity hypoventilation spo2 drops to 60% when sleeping even with 5 L of oxygen by nasal canula. has not used CPAP machine for more than 5 years reports it is broken. He was first diagnosed wit MATTY in . Echo ordered. CAD s/p [place], s/p stent x 1 at [facility] 2016 continue asa HLD Ezetimibe. GERD/ Peptic ulcer disease PPI ANXIETY, DEPRESSION, PTSD continue home meds. GILBERTS SYNDROME (GENETIC LIVER DISEASE - NO MUSCLE RELAXERS!) mild elevation of bilirubin noted. Renal stones No issues at present. Psoriatic rash on both ears. hydrocortisone ointment Plan/VTE VTE Prophylaxis Ordered?: Yes VS, I&O, 24H, Fishbone Vital Signs/I&O Vital Signs Date Time Temp Pulse Resp B/P (MAP) Pulse Ox O2 Delivery O2 Flow Rate FiO2 04/23/21 10:45 88 99 NIPPV (BIPAP/CPAP) 45 04/23/21 08:45 3.0 04/23/21 07:49 98.4 151/84 (106) 04/23/21 04:03 20 I&O- Last 24 Hours up to 6 AM 04/23/21 06:00 Intake Total 720 ml Output Total 0 ml Balance 720 ml Laboratory Data 24H LABS Laboratory Tests 2 04/22/21 14:53: Blood Gas Bicarbonate Standard 24.5, Arterial Blood pH 7.223*L, Arterial Blood Partial Pressure CO2 78.1*H, Arterial Blood Partial Pressure O2 40.2*L, Arterial Blood Total CO2 33.9H, Arterial Blood HCO3 31.5H, Arterial Blood Base Excess 0.9, Arterial Blood Oxygen Saturation 69.8L 04/22/21 16:51: Blood Gas Bicarbonate Standard 26.7H, Arterial Blood pH 7.238*L, Arterial Blood Partial Pressure CO2 79.0*H, Arterial Blood Partial Pressure O2 113.7H, Arterial Blood Total CO2 35.4H, Arterial Blood HCO3 32.9H, Arterial Blood Base Excess 2.5H, Arterial Blood Oxygen Saturation 98.0 04/22/21 21:20: Blood Gas Bicarbonate Standard 28.7H, Arterial Blood pH 7.383, Arterial Blood Partial Pressure CO2 54.0H, Arterial Blood Partial Pressure O2 83.7, Arterial Blood Total CO2 33.1H, Arterial Blood HCO3 31.4H, Arterial Blood Base Excess 4.8H, Arterial Blood Oxygen Saturation 97.2 04/23/21 04:58: Immature Granulocyte % (Auto) 0.8, Neutrophils (%) (Auto) 65.0, Lymphocytes (%) (Auto) 14.7L, Monocytes (%) (Auto) 16.7H, Eosinophils (%) (Auto) 2.4, Basophils (%) (Auto) 0.4, Neutrophils # (Auto) 4.8, Lymphocytes # (Auto) 1.1L, Monocytes # (Auto) 1.2H, Eosinophils # (Auto) 0.2, Basophils # (Auto) 0.0, Nucleated Red Blood Cells % (auto) 0.0, Anion Gap 1L, Glomerular Filtration Rate > 60.0, Calcium Level 8.7, Magnesium Level 2.2, Total Bilirubin 1.3H, Aspartate Amino Transf (AST/SGOT) 18, Alanine Aminotransferase (ALT/SGPT) 19, Alkaline Phosphatase 75, Total Protein 7.5, Albumin 2.6L, Albumin/Globulin Ratio 0.5 04/23/21 08:31: Blood Gas Bicarbonate Standard 26.2H, Arterial Blood pH 7.295L, Arterial Blood Partial Pressure CO2 64.2*H, Arterial Blood Partial Pressure O2 79.0, Arterial Blood Total CO2 32.5H, Arterial Blood HCO3 30.5H, Arterial Blood Base Excess 2.1H, Arterial Blood Oxygen Saturation 95.3 CBC/BMP Laboratory Tests 04/23/21 04:58 Microbiology Microbiology 04/21/21 Blood Culture - Preliminary, Resulted No growth after 24 hours . All specim... 04/21/21 Blood Culture - Preliminary, Resulted No growth after 24 hours . All specim... EVGENY MONCADA MD April 23, 2021 11:24
[2021-04-23 12:17] VITALS: BP 134/64
[2021-04-23] MEDS: KETOROLAC 30 MG/ML 1ML VIAL IV PRN ×2 (13:46→21:05)
[2021-04-23 16:06] VITALS: BP 143/73
[2021-04-23 16:22] LABS: ABG BASE EXCESS 4.1 (-2.0-2.0); ABG HCO3 34.7 MEQ/L (22.0-26.0); ABG O2 SATURATION 96.8 % (95.0-99.0); ABG PARTIAL PRESSURE O2 93.3 mmHg (75.0-100.0); ABG STANDARD HCO3 28.1 MEQ/L (22.0-26.0); ABG TOTAL CO2 37.2 MEQ/L (22.0-29.0)
[2021-04-23 16:24] LABS: ABG PARTIAL PRESSURE CO2 82.2 mmHg (35.0-45.0); ABG pH (ARTERIAL) 7.243 UNITS (7.350-7.450)
[2021-04-23] MEDS: LevoFLOXacin 750 MG TABLET PO SCH (17:39)
[2021-04-23 20:00] VITALS: BP 145/80
[2021-04-24] VITALS: BP 129/75
[2021-04-24] MEDS: ACETAMINOPHEN 500 MG TAB PO PRN ×2 (02:41→08:53)
[2021-04-24 04:00] VITALS: BP 123/67
[2021-04-24 04:39] LABS: BASO % 0.5 % (0.0-1.0); EOS # 0.2 10^3/uL (0.0-0.5); EOS % 2.8 % (0.0-3.0); LYMPH # 0.9 10^3/uL (1.5-5.0); LYMPH % 15.3 % (24.0-44.0); MEAN CORPUSCULAR HEMOGLOBIN 28.7 pg (27.0-33.0); MEAN CORPUSCULAR HGB CONC 30.4 g/dl (32.0-36.5); MEAN CORPUSCULAR VOLUME 94.5 fl (80.0-96.0); MONO # 0.9 10^3/uL (0.0-0.8); MONO % 14.5 % (2.0-8.0); NEUTROPHILS % 66.4 % (36.0-66.0); PLATELET COUNT, AUTOMATED 217 10^3/uL (150-450); RED BLOOD COUNT 4.87 10^6/uL (4.30-6.10); WHITE BLOOD COUNT 6.1 10^3/uL (4.0-10.0)
[2021-04-24 05:03] LABS: ALBUMIN 2.5 GM/DL (3.2-5.2); ALT/SGPT 17 U/L (12-78); BILIRUBIN,TOTAL 1.1 MG/DL (0.2-1.0); BLOOD UREA NITROGEN 10 MG/DL (7-18); CALCIUM LEVEL 8.6 MG/DL (8.5-10.1); CARBON DIOXIDE LEVEL 37 MEQ/L (21-32); CHLORIDE LEVEL 101 MEQ/L (98-107); CREATININE FOR GFR 0.64 MG/DL (0.70-1.30); GLOMERULAR FILTRATION RATE > 60.0 (>60); GLUCOSE, FASTING 112 MG/DL (70-100); MAGNESIUM LEVEL 2.2 MG/DL (1.8-2.4); POTASSIUM SERUM 4.3 MEQ/L (3.5-5.1); SODIUM LEVEL 140 MEQ/L (136-145); TOTAL PROTEIN 6.4 GM/DL (6.4-8.2)
[2021-04-24] MEDS: metroNIDAZOLE (FLAGYL) 500MG TABLET PO SCH ×3 (05:35→22:10)
[2021-04-24] MEDS: KETOROLAC 30 MG/ML 1ML VIAL IV PRN (05:35)
[2021-04-24] MEDS: HEPARIN SOD (PORCINE) 5000UNITS/ML 1ML VIAL/SYRINGE SC SCH ×3 (05:35→22:10)
[2021-04-24 07:29] LABS: ABG BASE EXCESS 6.2 (-2.0-2.0); ABG HCO3 35.1 MEQ/L (22.0-26.0); ABG O2 SATURATION 97.7 % (95.0-99.0); ABG PARTIAL PRESSURE CO2 71.2 mmHg (35.0-45.0); ABG PARTIAL PRESSURE O2 96.2 mmHg (75.0-100.0); ABG STANDARD HCO3 30.1 MEQ/L (22.0-26.0); ABG TOTAL CO2 37.3 MEQ/L (22.0-29.0); ABG pH (ARTERIAL) 7.311 UNITS (7.350-7.450)
[2021-04-24 08:00] VITALS: BP 125/66
[2021-04-24] MEDS: PANTOPRAZOLE 40MG TAB (PROTONIX) PO SCH (08:50)
[2021-04-24] MEDS: EZETIMIBE 10 MG TAB (ZETIA) PO SCH (08:50)
[2021-04-24] MEDS: FUROSEMIDE 20 MG TAB PO SCH (08:50)
[2021-04-24] MEDS: ASPIRIN 81MG ENTERIC TABLET PO SCH (08:50)
[2021-04-24] MEDS: DULoxetine 30 MG CAP (CYMBALTA) PO SCH (08:50)
[2021-04-24] MEDS: DOCUSATE SODIUM 100MG CAPSULE PO SCH ×2 (08:51→20:05)
--- NOTE | 2021-04-24 10:21 | IPN ---
PULMONARY PROGRESS NOTE DATE: 04/24/2021 SUBJECTIVE: Mr. Beckett is not using his BiPAP. On arrival to the room, he is intermittently using it. He states at times he feels anxious. I have explained to him on multiple occasions the importance of being compliant with the use of BiPAP. My concern is that he will likely have continued decompensated respiratory failure ending up intubated requiring tracheostomy and nocturnal ventilation at least. Given the severity of his obesity hypoventilation, urgent bariatric surgery may be considered. The patient needs to be compliant with dietary measures. He denies any fever or chills. No chest pain. The cream that was applied to his ears has improved some of his symptoms. OBJECTIVE: VITAL SIGNS: Temperature 97.3, pulse 79, respiratory rate 13, blood pressure 125/66 with a mean arterial pressure (MAP) of 85. Oxygen saturation 99% on 0.40 FiO2. GENERAL: Awake, alert, and oriented. Affect and mood are appropriate. At times, he appears slightly down. Dentition and hygiene are good. HEENT: Oral and nasal mucosa pink and moist without lesions. Oropharynx without erythema or exudate. Mallampati 4 airway. Psoriatic rash slightly improved over the bilateral ears from yesterday. NECK: Supple and large in circumference. Difficult to assess JVP based on body habitus. No discernable thyromegaly or thyroid nodules. LYMPHATICS: No cervical, supraclavicular, or axillary adenopathy. CARDIAC: Regular S1, S2 without audible murmur, rub or gallop. No elevated JVP. There is peripheral edema bilaterally pitting to the level of the knee. PULMONARY: Clear to auscultation without rales, rhonchi, or wheezes. Poor chest expansion. Decreased breath sounds throughout likely due to body habitus. No accessory muscle use. ABDOMEN: Obese, soft, nontender, and nondistended. No hepatosplenomegaly. No masses or hernia. EXTREMITIES: No cyanosis or clubbing. There are chronic venous stasis changes with dependent edema and some increased erythema of the left lower extremity consistent with cellulitis. LABORATORY DATA: Shows white blood cell count of 6.1, hemoglobin 14.0, platelet count 217,000. Sodium is 140, potassium 4.3, chloride 101, bicarb 37, BUN 10, creatinine 0.64. Total bilirubin is 1.1 and albumin is 2.5. Arterial blood gas this morning shows a pH of 7.31, pCO2 of 71, and PaO2 of 96. IMPRESSION AND PLAN: Chronic hypoxic hypercarbic respiratory failure likely from obesity hypoventilation, possibly pulmonary hypertension, but the patient is unable to undergo transthoracic echocardiogram as the echo does not penetrate through the chest wall layer due to obesity. The patient has extreme obesity that is threatening his life causing obesity hypoventilation. He should be considered for urgent gastric bypass surgery. He needs weight loss, dietary counseling, and to be compliant with BiPAP. If he is unable to be compliant with BiPAP, I am under the impression he will likely advance to requiring tracheostomy and nocturnal invasive ventilation. I have explained this to the patient on multiple occasions.
--- NOTE | 2021-04-24 11:34 | IPNPDOC ---
Subjective Date Seen The patient was seen on 04/24/21. Subjective Chief Complaint/HPI Patient falls asleep during conversation. He still has tenderness in the left leg. Has not been using his BIPAP consistently as he says the straps cut into his skin and sometimes he becomes very anxious. As per pulmonary if we continues to remain in decompensated resp failure he would likely end up getting intubated with tracheostomy and longterm ventilation Objective Physical Examination General Exam: Positive: Alert, Cooperative, No Acute Distress Eye Exam: Positive: PERRLA, Conjunctiva & lids normal, EOMI; Negative: Sclera icteric ENT Exam: Positive: Atraumatic, Mucous membr. moist/pink, Pharynx Normal, Other ENT (dry rash on both the ears. ) Neck Exam: Positive: Supple Chest Exam: Positive: Clear to auscultation, Normal air movement Heart Exam: Positive: Rate Normal, Regular Rhythm, Normal S1, Normal S2; Negative: Murmurs, Rubs Telemetry: Positive: No significant arrhythmia Abdomen Exam: Positive: Normal bowel sounds, Soft; Negative: Tenderness Extremity Exam: Positive: Edema, Tenderness (left leg), Other (redness left leg) Skin Exam: Positive: Other skin issue (bilateral chronic dry skin in the legs , chronic stasis changes. ) Assessment /Plan Assessment 45-year-old male with a history of morbid obesity, BMI 76, coronary artery disea se s/p [place], s/p 1 stent 5 years ago at [facility], hyperlipidemia, peptic ulcer disease, GERD, left knee replacement, left shoulder surgery, presented to the ER with a 2 day history of left lower leg edema, erythema and swelling. patient was admitted for cellulitis of left leg. Acute on chronic respiratory failure with hypercarbia and hypoxia Due to Extreme obesity currently on BIPAP. But patient is not using it consistently. He remains decompensated. Appreciate pulmonary consult. Morbid obesity with obesity hypoventilation, MATTY He was first diagnosed wit MATTY in . Echo transthoracic could not be done as the beam cannot penetrate his fat layers to reach the heart. Left leg cellulitis MRSA negative continue levofloxacin and metronidazole. DVT scan was incomplete . patient refused further . pain control with toradol CAD s/p [place], s/p stent x 1 at [facility] 2015 continue asa HLD Ezetimibe. GERD/ Peptic ulcer disease PPI ANXIETY, DEPRESSION, PTSD continue home meds. GILBERTS SYNDROME (GENETIC LIVER DISEASE - NO MUSCLE RELAXERS!) mild elevation of bilirubin noted. Renal stones No issues at present. Psoriatic rash on both ears. hydrocortisone ointment Plan/VTE VTE Prophylaxis Ordered?: Yes VS, I&O, 24H, Fishbone Vital Signs/I&O Vital Signs Date Time Temp Pulse Resp B/P (MAP) Pulse Ox O2 Delivery O2 Flow Rate FiO2 04/24/21 08:48 40 04/24/21 08:00 97.3 79 13 125/66 (85) 99 NIPPV (BIPAP/CPAP) 04/23/21 16:06 3.0 I&O- Last 24 Hours up to 6 AM 04/24/21 05:59 Intake Total 1380 ml Output Total 0 ml Balance 1380 ml Laboratory Data 24H LABS Laboratory Tests 2 04/23/21 16:13: Blood Gas Bicarbonate Standard 28.1H, Arterial Blood pH 7.243*L, Arterial Blood Partial Pressure CO2 82.2*H, Arterial Blood Partial Pressure O2 93.3, Arterial Blood Total CO2 37.2H, Arterial Blood HCO3 34.7H, Arterial Blood Base Excess 4.1H, Arterial Blood Oxygen Saturation 96.8 04/24/21 04:22: Immature Granulocyte % (Auto) 0.5, Neutrophils (%) (Auto) 66.4H, Lymphocytes (%) (Auto) 15.3L, Monocytes (%) (Auto) 14.5H, Eosinophils (%) (Auto) 2.8, Basophils (%) (Auto) 0.5, Neutrophils # (Auto) 4.0, Lymphocytes # (Auto) 0.9L, Monocytes # (Auto) 0.9H, Eosinophils # (Auto) 0.2, Basophils # (Auto) 0.0, Nucleated Red Blood Cells % (auto) 0.0, Anion Gap 2L, Glomerular Filtration Rate > 60.0, Calcium Level 8.6, Magnesium Level 2.2, Total Bilirubin 1.1H, Aspartate Amino Transf (AST/SGOT) 15, Alanine Aminotransferase (ALT/SGPT) 17, Alkaline Phos phatase 75, Total Protein 6.4, Albumin 2.5L, Albumin/Globulin Ratio 0.6 04/24/21 07:21: Blood Gas Bicarbonate Standard 30.1H, Arterial Blood pH 7.311L, Arterial Blood Partial Pressure CO2 71.2*H, Arterial Blood Partial Pressure O2 96.2, Arterial Blood Total CO2 37.3H, Arterial Blood HCO3 35.1H, Arterial Blood Base Excess 6.2H, Arterial Blood Oxygen Saturation 97.7 CBC/BMP Laboratory Tests 04/24/21 04:22 Microbiology Microbiology 04/21/21 Blood Culture - Preliminary, Resulted No Growth after 48 hours. All Specime... 04/21/21 Blood Culture - Preliminary, Resulted No Growth after 48 hours. All Specime... EVGENY MONCADA MD April 24, 2021 11:34
[2021-04-24 12:00] VITALS: BP 139/77
[2021-04-24 16:00] VITALS: BP 134/74
[2021-04-24] MEDS: LevoFLOXacin 750 MG TABLET PO SCH (17:38)
[2021-04-24 20:00] VITALS: BP 129/91
[2021-04-25] VITALS: BP 149/73
[2021-04-25] MEDS: KETOROLAC 30 MG/ML 1ML VIAL IV PRN (04:16)
[2021-04-25 04:45] LABS: BASO % 0.5 % (0.0-1.0); EOS # 0.2 10^3/uL (0.0-0.5); EOS % 2.5 % (0.0-3.0); HEMATOCRIT 45.2 % (42.0-52.0); HEMOGLOBIN 14.2 g/dl (13.5-17.5); LYMPH # 0.9 10^3/uL (1.5-5.0); LYMPH % 15.7 % (24.0-44.0); MEAN CORPUSCULAR HEMOGLOBIN 29.3 pg (27.0-33.0); MEAN CORPUSCULAR HGB CONC 31.4 g/dl (32.0-36.5); MEAN CORPUSCULAR VOLUME 93.2 fl (80.0-96.0); MONO # 0.8 10^3/uL (0.0-0.8); MONO % 13.3 % (2.0-8.0); NEUTROPHILS % 67.3 % (36.0-66.0); PLATELET COUNT, AUTOMATED 209 10^3/uL (150-450); RED BLOOD COUNT 4.85 10^6/uL (4.30-6.10); WHITE BLOOD COUNT 5.9 10^3/uL (4.0-10.0)
[2021-04-25] MEDS: HEPARIN SOD (PORCINE) 5000UNITS/ML 1ML VIAL/SYRINGE SC SCH ×3 (05:12→21:06)
[2021-04-25] MEDS: metroNIDAZOLE (FLAGYL) 500MG TABLET PO SCH ×3 (05:12→21:06)
[2021-04-25 05:18] LABS: ALBUMIN 2.5 GM/DL (3.2-5.2); ALT/SGPT 15 U/L (12-78); BILIRUBIN,TOTAL 1.2 MG/DL (0.2-1.0); BLOOD UREA NITROGEN 9 MG/DL (7-18); CALCIUM LEVEL 8.6 MG/DL (8.5-10.1); CARBON DIOXIDE LEVEL 39 MEQ/L (21-32); CHLORIDE LEVEL 100 MEQ/L (98-107); CREATININE FOR GFR 0.63 MG/DL (0.70-1.30); GLOMERULAR FILTRATION RATE > 60.0 (>60); GLUCOSE, FASTING 96 MG/DL (70-100); MAGNESIUM LEVEL 2.1 MG/DL (1.8-2.4); SODIUM LEVEL 140 MEQ/L (136-145); TOTAL PROTEIN 6.6 GM/DL (6.4-8.2)
[2021-04-25 05:46] LABS: ABG BASE EXCESS 8.4 (-2.0-2.0); ABG HCO3 36.9 MEQ/L (22.0-26.0); ABG O2 SATURATION 95.9 % (95.0-99.0); ABG PARTIAL PRESSURE O2 80.8 mmHg (75.0-100.0); ABG STANDARD HCO3 32.2 MEQ/L (22.0-26.0); ABG pH (ARTERIAL) 7.349 UNITS (7.350-7.450)
[2021-04-25 05:47] LABS: ABG PARTIAL PRESSURE CO2 68.5 mmHg (35.0-45.0)
[2021-04-25 08:03] VITALS: BP 136/73
[2021-04-25] MEDS: DOCUSATE SODIUM 100MG CAPSULE PO SCH ×2 (09:00→20:52)
[2021-04-25] MEDS: EZETIMIBE 10 MG TAB (ZETIA) PO SCH (09:17)
[2021-04-25] MEDS: DULoxetine 30 MG CAP (CYMBALTA) PO SCH (09:17)
[2021-04-25] MEDS: ASPIRIN 81MG ENTERIC TABLET PO SCH (09:17)
[2021-04-25] MEDS: PANTOPRAZOLE 40MG TAB (PROTONIX) PO SCH (09:17)
[2021-04-25] MEDS: FUROSEMIDE 20 MG TAB PO SCH (09:17)
--- NOTE | 2021-04-25 11:30 | IPN ---
PROGRESS NOTE DATE: 04/25/2021 SUBJECTIVE: Mr. Beckett feels better this morning. He had better mask fitting after shaving his guajardo. He has no shakiness and no asterixis. He does not feel short of breath. Denies chest pain. He feels that his ears are less itchy. His lower extremity is in less pain. Reviewing his diet this morning, he had a muffin and a bagel. I explained balancing carbohydrate with protein and vegetables. He is in severe need of dietary counseling and weight loss. OBJECTIVE: VITAL SIGNS: Temperature 98.5, pulse 89, respiratory rate 21, blood pressure 136/73 with a mean arterial pressure (MAP) of 94, and oxygen saturation is 95% on 0.30 FiO2 while on noninvasive therapy. GENERAL: Awake, alert, and oriented. Affect and mood are appropriate. Nutrition and hygiene are good. I was speaking with him when he was off BiPAP and he did not have any distress. HEENT: Sclerae clear and anicteric. Pupils equal and reactive to light. Mucous membranes are moist. Oropharynx is crowded. Mallampati IV. NECK: Difficult to assess JVP due to body habitus, large circumference. Thyroid is difficult to palpate. LYMPHATICS: No cervical, supraclavicular, or axillary adenopathy. CARDIAC: Distant S1, S2 without audible murmur, rub, or gallop. No elevated JVP. There is significant dependent edema with chronic venous stasis changes. PULMONARY: Decreased breath sounds with decreased air entry, but no rales, rhonchi, or wheezes. No dullness to percussion. ABDOMEN: Morbidly obese, soft, nontender, and nondistended. No discernable hepatosplenomegaly, but this would be difficult with the patient's body habitus. EXTREMITIES: The left lower extremity is much less erythema than on prior examinations. There does appear to be slightly less edema. MUSCULOSKELETAL: Difficult to assess with the amount of subcutaneous fat. No evidence of fracture. NEUROLOGIC: No unilateral weakness, tremor, or seizure activity. LABORATORY DATA: This morning shows a pH of 7.35, pCO2 of 68, PaO2 of 81. Chemistries show sodium 140, potassium 4.0, chloride 100, bicarb of 39 with a creatinine of 0.63 and white blood cell count of 5.9, hemoglobin 14.2 with a platelet count of 209,000. IMPRESSION/PLAN: 1. A 45-year-old male with obesity hypoventilation and chronic CO2 retention. Will require BiLevel noninvasive therapy. The patient has a history of obstructive sleep apnea and will need an outpatient sleep study. Will change the patient to tabletop. He will use it now for all forms of sleep and be off during the day when he is awake. If he does well overnight, will consider transfer to the progressive care unit (PCU) in the morning. 2. Cellulitis managed per primary team. Based on the appearance of the lower extremity, there appears to be improvement.
[2021-04-25 12:00] VITALS: BP 149/72
[2021-04-25 12:14] LABS: APPEARANCE, URINE CLEAR (CLEAR); BACTERIA, URINE AUTO NEGATIVE (NEGATIVE); BILIRUBIN, URINE AUTO NEGATIVE (NEGATIVE); BLOOD, URINE BLOOD 1+ (NEGATIVE); COLOR, URINE AMBER (YELLOW); GLUCOSE, URINE (UA) AUTO NEGATIVE (NEGATIVE); KETONE, URINE AUTO TRACE mg/dL (NEGATIVE); LEUKOCYTE ESTERASE, URINE AUTO TRACE (NEGATIVE); MUCUS, URINE SMALL (NEGATIVE); NITRITE, URINE AUTO NEGATIVE (NEGATIVE); PROTEIN, URINE AUTO NEGATIVE (NEGATIVE); RBC, URINE AUTO 21 /HPF (0-3); SPECIFIC GRAVITY URINE AUTO 1.013 (1.002-1.035); SQUAMOUS EPITHELIAL CELL UR AU 0 /HPF (0-6); WBC, URINE AUTO 1 /HPF (0-3)
[2021-04-25 15:56] VITALS: BP 160/86
[2021-04-25] MEDS: LevoFLOXacin 750 MG TABLET PO SCH (17:10)
--- NOTE | 2021-04-25 18:16 | IPNPDOC ---
Subjective Date Seen The patient was seen on 04/25/21. Subjective Chief Complaint/HPI Abg looking better this morning. Was able to use the BIPAP overnight after we were able to get a bigger strap for the mask. Spoke with at bed side apparently the whole family is permanently moving to [place] this week. They have bought a house there and they have to vacate their current apartment by Monday or Monday. She was hoping that Chuy would be discharged by monday. Objective Physical Examination General Exam: Positive: Alert, Cooperative, No Acute Distress Eye Exam: Positive: PERRLA, Conjunctiva & lids normal, EOMI; Negative: Sclera icteric ENT Exam: Positive: Atraumatic, Mucous membr. moist/pink, Pharynx Normal, Other ENT (dry rash on both the ears. ) Neck Exam: Positive: Supple Chest Exam: Positive: Clear to auscultation, Normal air movement Heart Exam: Positive: Rate Normal, Regular Rhythm, Normal S1, Normal S2; Negative: Murmurs, Rubs Telemetry: Positive: No significant arrhythmia Abdomen Exam: Positive: Normal bowel sounds, Soft; Negative: Tenderness Extremity Exam: Positive: Edema, Tenderness (left leg), Other (redness left leg) Skin Exam: Positive: Other skin issue (bilateral chronic dry skin in the legs , chronic stasis changes. ) Assessment /Plan Assessment 45-year-old male with a history of morbid obesity, BMI 76, coronary artery disease s/p [place], s/p 1 stent 5 years ago at [facility], hyperlipidemia, peptic ulcer disease, GERD, left knee replacement, left shoulder surgery, presented to the ER with a 2 day history of left lower leg edema, erythema and swelling. patient was admitted for cellulitis of left leg. Acute on chronic respiratory failure with hypercarbia and hypoxia Due to Extreme obesity On BIPAP. Better compensated this morning. Patient is transitioned to tabletop today Appreciate pulmonary consult. Morbid obesity with obesity hypoventilation, MATTY He was first diagnosed wit MATTY in . Echo transthoracic could not be done as the beam cannot penetrate his fat layers to reach the heart. Left leg cellulitis MRSA negative continue levofloxacin and metronidazole. DVT scan was incomplete . patient refused further . pain control with toradol CAD s/p [place], s/p stent x 1 at [facility] 2016 continue asa HLD Ezetimibe. GERD/ Peptic ulcer disease PPI ANXIETY, DEPRESSION, PTSD continue home meds. GILBERTS SYNDROME (GENETIC LIVER DISEASE - NO MUSCLE RELAXERS!) mild elevation of bilirubin noted. Renal stones No issues at present. Psoriatic rash on both ears. hydrocortisone ointment Plan/VTE VTE Prophylaxis Ordered?: Yes VS, I&O, 24H, Fishbone Vital Signs/I&O Vital Signs Date Time Temp Pulse Resp B/P (MAP) Pulse Ox O2 Delivery O2 Flow Rate FiO2 04/25/21 00:19 30 04/25/21 00:00 96.6 80 18 149/73 (98) 97 NIPPV (BIPAP/CPAP) 04/23/21 16:06 3.0 I&O- Last 24 Hours up to 6 AM 04/25/21 06:00 Intake Total 1260 ml Output Total 400 ml Balance 860 ml Laboratory Data 24H LABS Laboratory Tests 2 04/24/21 07:21: Blood Gas Bicarbonate Standard 30.1H, Arterial Blood pH 7.311L, Arterial Blood Partial Pressure CO2 71.2*H, Arterial Blood Partial Pressure O2 96.2, Arterial Blood Total CO2 37.3H, Arterial Blood HCO3 35.1H, Arterial Blood Base Excess 6.2H, Arterial Blood Oxygen Saturation 97.7 04/25/21 04:34: Immature Granulocyte % (Auto) 0.7, Neutrophils (%) (Auto) 67.3H, Lymphocytes (%) (Auto) 15.7L, Monocytes (%) (Auto) 13.3H, Eosinophils (%) (Auto) 2.5, Basophils (%) (Auto) 0.5, Neutrophils # (Auto) 4.0, Lymphocytes # (Auto) 0.9L, Monocytes # (Auto) 0.8, Eosinophils # (Auto) 0.2, Basophils # (Auto) 0.0, Nucleated Red Blood Cells % (auto) 0.0, Anion Gap 1L, Glomerular Filtration Rate > 60.0, Calcium Level 8.6, Magnesium Level 2.1, Total Bilirubin 1.2H, Aspartate Amino Transf (AST/SGOT) 19, Alanine Aminotransferase (ALT/SGPT) 15, Alkaline Phosphatase 67, Total Protein 6.6, Albumin 2.5L, Albumin/Globulin Ratio 0.6 04/25/21 05:40: Blood Gas Bicarbonate Standard 32.2H, Arterial Blood pH 7.349L, Arterial Blood Partial Pressure CO2 68.5*H, Arterial Blood Partial Pressure O2 80.8, Arterial Blood Total CO2 39.0H, Arterial Blood HCO3 36.9H, Arterial Blood Base Excess 8.4H, Arterial Blood Oxygen Saturation 95.9 CBC/BMP Laboratory Tests 04/25/21 04:34 Microbiology Microbiology 04/21/21 Blood Culture - Preliminary, Resulted No Growth after 72 hours. All specime... 04/21/21 Blood Culture - Preliminary, Resulted No Growth after 72 hours. All specime... EVGENY MONCADA MD April 25, 2021 06:59
[2021-04-25 20:00] VITALS: BP 154/79
[2021-04-26] VITALS: BP 145/69
[2021-04-26] MEDS: KETOROLAC 30 MG/ML 1ML VIAL IV PRN ×2 (00:04→16:21)
[2021-04-26 00:26] LABS: BLOOD UREA NITROGEN 9 MG/DL (7-18); CALCIUM LEVEL 9.3 MG/DL (8.5-10.1); CARBON DIOXIDE LEVEL 38 MEQ/L (21-32); CHLORIDE LEVEL 98 MEQ/L (98-107); CPK CREATINE PHOSPHOKINASE 53 U/L (39-308); CREATININE FOR GFR 0.62 MG/DL (0.70-1.30); FREE T4 1.27 NG/DL (0.76-1.46); GLOMERULAR FILTRATION RATE > 60.0 (>60); GLUCOSE, FASTING 91 MG/DL (70-100); MAGNESIUM LEVEL 1.8 MG/DL (1.8-2.4); MB/CK RELATIVE INDEX 1.89 (< OR =4); POTASSIUM SERUM 3.8 MEQ/L (3.5-5.1); SODIUM LEVEL 141 MEQ/L (136-145); TROPONIN I < 0.02 NG/ML (< 0.10)
[2021-04-26 04:00] VITALS: BP 127/70
[2021-04-26 04:55] LABS: BASO % 0.6 % (0.0-1.0); EOS # 0.1 10^3/uL (0.0-0.5); EOS % 2.2 % (0.0-3.0); HEMATOCRIT 45.2 % (42.0-52.0); HEMOGLOBIN 14.5 g/dl (13.5-17.5); LYMPH % 19.9 % (24.0-44.0); MEAN CORPUSCULAR HEMOGLOBIN 29.3 pg (27.0-33.0); MEAN CORPUSCULAR HGB CONC 32.1 g/dl (32.0-36.5); MEAN CORPUSCULAR VOLUME 91.3 fl (80.0-96.0); MONO # 0.8 10^3/uL (0.0-0.8); MONO % 15.3 % (2.0-8.0); NEUTROPHILS # 3.1 10^3/uL (1.5-8.5); NEUTROPHILS % 61.4 % (36.0-66.0); PLATELET COUNT, AUTOMATED 216 10^3/uL (150-450); RED BLOOD COUNT 4.95 10^6/uL (4.30-6.10)
[2021-04-26 05:24] LABS: ALBUMIN 2.5 GM/DL (3.2-5.2); ALT/SGPT 15 U/L (12-78); BILIRUBIN,TOTAL 1.1 MG/DL (0.2-1.0); BLOOD UREA NITROGEN 8 MG/DL (7-18); CALCIUM LEVEL 8.5 MG/DL (8.5-10.1); CARBON DIOXIDE LEVEL 36 MEQ/L (21-32); CHLORIDE LEVEL 100 MEQ/L (98-107); CREATININE FOR GFR 0.63 MG/DL (0.70-1.30); GLOMERULAR FILTRATION RATE > 60.0 (>60); GLUCOSE, FASTING 91 MG/DL (70-100); POTASSIUM SERUM 3.6 MEQ/L (3.5-5.1); SODIUM LEVEL 139 MEQ/L (136-145); TOTAL PROTEIN 7.2 GM/DL (6.4-8.2)
[2021-04-26 05:40] LABS: ABG BASE EXCESS 8.5 (-2.0-2.0); ABG O2 SATURATION 95.2 % (95.0-99.0); ABG PARTIAL PRESSURE O2 74.2 mmHg (75.0-100.0); ABG STANDARD HCO3 32.2 MEQ/L (22.0-26.0); ABG TOTAL CO2 37.9 MEQ/L (22.0-29.0); ABG pH (ARTERIAL) 7.381 UNITS (7.350-7.450)
[2021-04-26 05:41] LABS: ABG PARTIAL PRESSURE CO2 62.1 mmHg (35.0-45.0)
[2021-04-26] MEDS: metroNIDAZOLE (FLAGYL) 500MG TABLET PO SCH ×3 (05:49→21:13)
[2021-04-26] MEDS: HEPARIN SOD (PORCINE) 5000UNITS/ML 1ML VIAL/SYRINGE SC SCH ×3 (05:49→21:13)
[2021-04-26 08:08] VITALS: BP 129/70
[2021-04-26] MEDS: FUROSEMIDE 20 MG TAB PO SCH (08:45)
[2021-04-26] MEDS: ASPIRIN 81MG ENTERIC TABLET PO SCH (08:45)
[2021-04-26] MEDS: DULoxetine 30 MG CAP (CYMBALTA) PO SCH (08:45)
[2021-04-26] MEDS: EZETIMIBE 10 MG TAB (ZETIA) PO SCH (08:45)
[2021-04-26] MEDS: PANTOPRAZOLE 40MG TAB (PROTONIX) PO SCH (08:45)
[2021-04-26] MEDS: DOCUSATE SODIUM 100MG CAPSULE PO SCH ×2 (08:45→21:00)
[2021-04-26 10:45] VITALS: BP 150/92
[2021-04-26 14:00] VITALS: BP 149/75
[2021-04-26] MEDS: ACETAMINOPHEN 500 MG TAB PO PRN (16:21)
[2021-04-26] MEDS ORDERED: FUROSEMIDE 100MG/10ML VIAL (J1940) IV ONE (16:30)
[2021-04-26] MEDS: LevoFLOXacin 750 MG TABLET PO SCH (16:58)
[2021-04-26 22:00] VITALS: BP 140/85
[2021-04-27 05:40] LABS: ABG HCO3 36.8 MEQ/L (22.0-26.0); ABG TOTAL CO2 38.6 MEQ/L (22.0-29.0)
[2021-04-27 05:41] LABS: ABG BASE EXCESS 9.5 (-2.0-2.0); ABG O2 SATURATION 93.7 % (95.0-99.0); ABG PARTIAL PRESSURE O2 68.9 mmHg (75.0-100.0); ABG STANDARD HCO3 33.2 MEQ/L (22.0-26.0); ABG pH (ARTERIAL) 7.403 UNITS (7.350-7.450)
[2021-04-27] MEDS: metroNIDAZOLE (FLAGYL) 500MG TABLET PO SCH ×2 (05:41→15:43)
[2021-04-27] MEDS: HEPARIN SOD (PORCINE) 5000UNITS/ML 1ML VIAL/SYRINGE SC SCH ×2 (05:41→15:44)
[2021-04-27 05:42] LABS: ABG PARTIAL PRESSURE CO2 60.3 mmHg (35.0-45.0)
[2021-04-27 05:53] LABS: BASO % 0.6 % (0.0-1.0); EOS # 0.1 10^3/uL (0.0-0.5); EOS % 2.7 % (0.0-3.0); HEMATOCRIT 47.1 % (42.0-52.0); HEMOGLOBIN 15.1 g/dl (13.5-17.5); LYMPH # 0.9 10^3/uL (1.5-5.0); LYMPH % 18.1 % (24.0-44.0); MEAN CORPUSCULAR HEMOGLOBIN 29.4 pg (27.0-33.0); MEAN CORPUSCULAR HGB CONC 32.1 g/dl (32.0-36.5); MEAN CORPUSCULAR VOLUME 91.8 fl (80.0-96.0); MONO # 0.8 10^3/uL (0.0-0.8); NEUTROPHILS # 3.2 10^3/uL (1.5-8.5); NEUTROPHILS % 62.8 % (36.0-66.0); PLATELET COUNT, AUTOMATED 244 10^3/uL (150-450); RED BLOOD COUNT 5.13 10^6/uL (4.30-6.10); WHITE BLOOD COUNT 5.2 10^3/uL (4.0-10.0)
[2021-04-27 06:00] VITALS: BP 150/86
[2021-04-27 06:24] LABS: ALBUMIN 2.7 GM/DL (3.2-5.2); ALT/SGPT 17 U/L (12-78); BILIRUBIN,TOTAL 1.1 MG/DL (0.2-1.0); BLOOD UREA NITROGEN 11 MG/DL (7-18); CALCIUM LEVEL 9.3 MG/DL (8.5-10.1); CARBON DIOXIDE LEVEL 39 MEQ/L (21-32); CHLORIDE LEVEL 96 MEQ/L (98-107); CREATININE FOR GFR 0.81 MG/DL (0.70-1.30); GLOMERULAR FILTRATION RATE > 60.0 (>60); GLUCOSE, FASTING 101 MG/DL (70-100); MAGNESIUM LEVEL 1.9 MG/DL (1.8-2.4); POTASSIUM SERUM 3.5 MEQ/L (3.5-5.1); SODIUM LEVEL 139 MEQ/L (136-145); TOTAL PROTEIN 7.3 GM/DL (6.4-8.2)
[2021-04-27] MEDS: DOCUSATE SODIUM 100MG CAPSULE PO SCH (08:54)
[2021-04-27] MEDS: PANTOPRAZOLE 40MG TAB (PROTONIX) PO SCH (08:54)
[2021-04-27] MEDS: DULoxetine 30 MG CAP (CYMBALTA) PO SCH (08:54)
[2021-04-27] MEDS: ASPIRIN 81MG ENTERIC TABLET PO SCH (08:54)
[2021-04-27] MEDS: EZETIMIBE 10 MG TAB (ZETIA) PO SCH (08:54)
[2021-04-27] MEDS: FUROSEMIDE 20 MG TAB PO SCH (08:54)
[2021-04-27] MEDS: KETOROLAC 30 MG/ML 1ML VIAL IV PRN (08:58)
[2021-04-27] MEDS: ACETAMINOPHEN 500 MG TAB PO PRN (08:58)
[2021-04-27 14:00] VITALS: BP 124/84
--- NOTE | 2021-04-27 23:13 | IPNPDOC ---
Subjective Date Seen The patient was seen on 04/26/21. Subjective Chief Complaint/HPI No complaints this morning. Left leg pain and soreness is slowly improving. Objective Physical Examination General Exam: Positive: Alert, Cooperative, No Acute Distress Eye Exam: Positive: PERRLA, Conjunctiva & lids normal, EOMI; Negative: Sclera icteric ENT Exam: Positive: Atraumatic, Mucous membr. moist/pink, Pharynx Normal, Other ENT (dry rash on both the ears. ) Neck Exam: Positive: Supple Chest Exam: Positive: Clear to auscultation, Normal air movement Heart Exam: Positive: Rate Normal, Regular Rhythm, Normal S1, Normal S2; Negative: Murmurs, Rubs Telemetry: Positive: No significant arrhythmia Abdomen Exam: Positive: Normal bowel sounds, Soft; Negative: Tenderness Extremity Exam: Positive: Edema, Tenderness (left leg), Other (redness left leg) Skin Exam: Positive: Other skin issue (bilateral chronic dry skin in the legs , chronic stasis changes. ) Assessment /Plan Assessment 45-year-old male with a history of morbid obesity, BMI 76, coronary artery disease s/p [place], s/p 1 stent 5 years ago at [facility], hyperlipidemia, peptic ulcer disease, GERD, left knee replacement, left shoulder surgery, presented to the ER with a 2 day history of left lower leg edema, erythema and swelling. patient was admitted for cellulitis of left leg. Acute on chronic respiratory failure with hypercarbia and hypoxia Due to Extreme obesity with obesity hypoventilation and MATTY On BIPAP. Compensated this morning. Did well on Table top Appreciate pulmonary consult. Morbid obesity with obesity hypoventilation, MATTY He was first diagnosed with MATTY in . Echo transthoracic could not be done as the beam cannot penetrate his fat layers to reach the heart. Left leg cellulitis MRSA negative continue levofloxacin and metronidazole. DVT scan was incomplete . patient refused further . pain control with toradol CAD s/p [place], s/p stent x 1 at [facility] 2016 continue asa HLD Ezetimibe. GERD/ Peptic ulcer disease PPI ANXIETY, DEPRESSION, PTSD continue home meds. GILBERTS SYNDROME (GENETIC LIVER DISEASE - NO MUSCLE RELAXERS!) mild elevation of bilirubin noted. Renal stones No issues at present. Psoriatic rash on both ears. hydrocortisone ointment Plan/VTE VTE Prophylaxis Ordered?: Yes VS, I&O, 24H, Fishbone Vital Signs/I&O Vital Signs Date Time Temp Pulse Resp B/P (MAP) Pulse Ox O2 Delivery O2 Flow Rate FiO2 04/27/21 14:00 97.7 94 21 124/84 (97) 91 Room Air 04/27/21 06:00 3.0 04/25/21 12:00 30 I&O- Last 24 Hours up to 6 AM 04/27/21 07:00 Intake Total 1080 ml Output Total 2200 ml Balance -1120 ml Laboratory Data 24H LABS Laboratory Tests 2 04/27/21 05:30: Blood Gas Bicarbonate Standard 33.2H, Arterial Blood pH 7.403, Arterial Blood Partial Pressure CO2 60.3*H, Arterial Blood Partial Pressure O2 68.9L, Arterial Blood Total CO2 38.6H, Arterial Blood HCO3 36.8H, Arterial Blood Base Excess 9.5H, Arterial Blood Oxygen Saturation 93.7L 04/27/21 05:36: Immature Granulocyte % (Auto) 0.8, Neutrophils (%) (Auto) 62.8, Lymphocytes (%) (Auto) 18.1L, Monocytes (%) (Auto) 15.0H, Eosinophils (%) (Auto) 2.7, Basophils (%) (Auto) 0.6, Neutrophils # (Auto) 3.2, Lymphocytes # (Auto) 0.9L, Monocytes # (Auto) 0.8, Eosinophils # (Auto) 0.1, Basophils # (Auto) 0.0, Nucleated Red Blood Cells % (auto) 0.0, Anion Gap 4L, Glomerular Filtration Rate > 60.0, Calcium Level 9.3, Magnesium Level 1.9, Total Bilirubin 1.1H, Aspartate Amino Transf (AST/SGOT) 26, Alanine Aminotransferase (ALT/SGPT) 17, Alkaline Phosphatase 71, Total Protein 7.3, Albumin 2.7L, Albumin/Globulin Ratio 0.6 CBC/BMP Laboratory Tests 04/27/21 05:36 Microbiology Microbiology 04/21/21 Blood Culture - Final, Complete NO GROWTH AFTER 5 DAYS 04/21/21 Blood Culture - Final, Complete NO GROWTH AFTER 5 DAYS EVGENY MONCADA MD Apr 27, 2021 23:13
== END 2021-04-27 16:19 | disposition home or self-care (01) | DRG 383 ==
LOC: M ED 14:54 → M ED INP 14:55 → ENRESERV 23:04 → M MS5PR 23:31 → M ICU 04-22 15:20 → OBSVTOIN 04-22 15:24 → M MSPAV 04-26 10:42
PROVIDERS: ADMIT Family Medicine; ATTEND Internal Medicine Nephrology
DX: L03.116 Cellulitis of left lower limb (principal); J96.01 Acute respiratory failure with hypoxia; I27.20 Pulmonary hypertension, unspecified; I50.810 Right heart failure, unspecified; E66.2 Morbid (severe) obesity with alveolar hypoventilation; Z68.45 Body mass index [BMI] 70 or greater, adult; J96.02 Acute respiratory failure with hypercapnia; K04.7 Periapical abscess without sinus; G47.33 Obstructive sleep apnea (adult) (pediatric); I25.10 Atherosclerotic heart disease of native coronary artery without angina pectoris; I25.2 Old myocardial infarction; Z95.2 Presence of prosthetic heart valve; E78.5 Hyperlipidemia, unspecified; K21.9 Gastro-esophageal reflux disease without esophagitis; Z96.652 Presence of left artificial knee joint; E80.4 Gilbert syndrome; L40.8 Other psoriasis; F43.10 Post-traumatic stress disorder, unspecified; F32.9 Major depressive disorder, single episode, unspecified; F41.9 Anxiety disorder, unspecified; N20.0 Calculus of kidney